=== PATIENT | male | born 1940 | race Caucasian/White ===

== ENCOUNTER → 2020-11-12 | Outpatient (CLI) | payer MEDICARE ==
[2020-11-12 13:52] LABS: Ionized Calcium 5.8 mg/dL (4.5-5.3)
[2020-11-12 20:50] LABS: Albumin 4.7 g/dL (3.80-4.90); Albumin/Globulin Ratio 2.35 (1.60-3.17); Calcium 10.4 mg/dL (8.7-10.3); Non-African American GFR(CKD) 70.8 (60.0-200.0); Potassium 4.3 mmol/L (3.5-5.5); Total Bilirubin 0.6 mg/dL (0.2-1.2); Total Protein 6.7 g/dL (6.2-8.2)
[2020-11-12 21:04] LABS: Basophils # (A) 0.05 X 10*3/uL (0.00-0.10); Basophils % (A) 0.6 %; Eosinophils # (A) 0.32 X 10*3/uL (0.04-0.35); Eosinophils % (A) 3.8 %; HCT 45.7 % (39.6-50.0); HGB 14.7 g/dL (13.0-17.0); Lymphocytes # (A) 2.05 X 10*3/uL (0.90-5.00); Lymphocytes % (A) 24.4 %; MCH 29.5 pg (27.0-32.0); MCHC 32.2 g/dL (32.0-37.0); MCV 91.8 fL (80.0-97.0); Mean Platelet Volume 11.1 fL (9.5-12.2); Monocytes % (A) 8.3 %; Neutrophils # (A) 5.27 X 10*3/uL (1.80-7.70); Neutrophils % (A) 62.7 %; Platelet Count 238 X 10*3/uL (140-440); RBC 4.98 X 10*6/uL (4.40-5.60); RDW 13.7 % (11.5-14.5); WBC 8.41 X 10*3/uL (4.50-10.00)
== END | disposition home or self-care (01) ==
LOC: LABWHC1 13:24
DX: E04.1 Nontoxic single thyroid nodule (principal)
CPT/HCPCS: 36415; 80053; 82330; 83970; 84432; 84439; 84481; 85025

== ENCOUNTER → 2021-01-31 | Outpatient (CLI) | payer MEDICARE ==
--- NOTE | 2021-02-03 06:50 | US ---
EXAMINATION TYPE: US thyroid st tissue head/neck DATE OF EXAM: 01/31/2021 COMPARISON: NONE CLINICAL HISTORY: E04.0 Thyroid Nodule. Thyroid nodule. GLAND SIZE: Right Lobe: 5.1 x 2.2 x 2.7 cm Overall Parenchyma: heterogenous Left Lobe: 4.3 x 1.4 x 1.4 cm Overall Parenchyma: heterogeneous Isthmus Thickness: 0.5 cm NODULES RIGHT: # of nodules measured on right: 2 1. 2.9 X 2.5 x 2.5 cm, lower , solid or almost completely solid, hypoechoic nodule, which is wider than tall, with ill-defined margins, without echogenic foci. Prior size: no prior 2. 1.3 X 1.2 x 1.0 cm, lower mid, solid or almost completely solid, hypoechoic nodule, which is wid er than tall, with smooth margins, without echogenic foci. Prior size: No prior LEFT: # of nodules measured on left: 3 1. 0.6 X 0.5 x 0.4 cm, upper medial, mixed cystic and solid, isoechoic nodule, which is taller than wide, with ill-defined margins, without echogenic foci. Prior size: no prior 2. 0.5 X 0.4 x 0.4 cm, upper mid, solid or almost completely solid, hypoechoic nodule, which is wi de as tall, with smooth margins, without echogenic foci. Prior size: no prior 3. 0.4 X 0.3 cm, lower Calcification Prior size: no prior ISTHMUS: # of nodules measured in the isthmus: 0 Bilateral neck scanned, no evidence of lymphadenopathy. Heterogeneous normal-sized thyroid with scattered bilateral nodules. IMPRESSION: Dominant 2.9 cm right-sided nodule is moderately suspicious, FNA is advised. 2017 ACR TI-RADS LEVEL: TR-RADS 4 - Moderately Suspicious: Follow if > 1 cm, FNA if > 1.5 cm *Highest TI-RADS level nodule reported
== END | disposition home or self-care (01) ==
LOC: RADUSWWP 10:19
PROVIDERS: ATTEND Psychiatry & Neurology Neurology
DX: E04.1 Nontoxic single thyroid nodule (principal)
CPT/HCPCS: 76536

== ENCOUNTER → 2021-02-10 | Outpatient (CLI) | payer MEDICARE ==
[2021-02-10 11:37] LABS: Ionized Calcium 6.2 mg/dL (4.5-5.3)
[2021-02-10 19:23] LABS: Calcium 10.2 mg/dL (8.7-10.3)
[2021-02-10 19:43] LABS: T4, Free (Free Thyroxine) 0.8 ng/dL (0.80-1.80)
== END | disposition home or self-care (01) ==
LOC: LABWHC1 09:46
PROVIDERS: ATTEND Surgery
DX: E04.1 Nontoxic single thyroid nodule (principal)
CPT/HCPCS: 36415; 82310; 82330; 83970; 84439; 84481

== ENCOUNTER → 2021-02-18 | Outpatient (CLI) | payer MEDICARE | END | disposition home or self-care (01) | LOC: LABWHC1 15:13 | PROVIDERS: ATTEND Family Medicine | DX: Z01.818 Encounter for other preprocedural examination (principal); I45.10 Unspecified right bundle-branch block; I21.09 ST elevation (STEMI) myocardial infarction involving other coronary artery of anterior wall; R94.31 Abnormal electrocardiogram [ECG] [EKG] | CPT/HCPCS: 36415; 93005 ==

== ENCOUNTER → 2021-02-22 | Outpatient (CLI) | payer MEDICARE ==
[2021-02-22 16:01] LABS: Basophils # (A) 0.06 X 10*3/uL (0.00-0.10); Basophils % (A) 0.7 %; Eosinophils # (A) 0.27 X 10*3/uL (0.04-0.35); Eosinophils % (A) 2.9 %; HCT 44.1 % (39.6-50.0); HGB 14.4 g/dL (13.0-17.0); Lymphocytes # (A) 1.57 X 10*3/uL (0.90-5.00); Lymphocytes % (A) 17.1 %; MCH 29.7 pg (27.0-32.0); MCHC 32.7 g/dL (32.0-37.0); MCV 90.9 fL (80.0-97.0); Mean Platelet Volume 11.2 fL (9.5-12.2); Monocytes # (A) 0.88 X 10*3/uL (0.20-1.00); Monocytes % (A) 9.6 %; Neutrophils # (A) 6.39 X 10*3/uL (1.80-7.70); Neutrophils % (A) 69.4 %; Platelet Count 253 X 10*3/uL (140-440); RBC 4.85 X 10*6/uL (4.40-5.60); RDW 13.8 % (11.5-14.5)
[2021-02-22 18:21] LABS: Hemoglobin A1C 6.7 % (4.0-6.0)
[2021-02-22 20:41] LABS: Anion Gap 11.5 mmol/L (4.00-12.00); BUN/Creat Ratio 17.27 Ratio (12.00-20.00); Carbon Dioxide 22.5 mmol/L (21.6-31.8); Magnesium 1.8 mg/dL (1.5-2.4); Potassium 4.7 mmol/L (3.5-5.5)
[2021-02-22 20:42] LABS: African American GFR (CKD) 73.1 (60.0-200.0); Albumin 4.7 g/dL (3.80-4.90); Albumin/Globulin Ratio 1.88 (1.60-3.17); Bilirubin, Conjugated 0.3 mg/dL (0.20-0.40); Bilirubin,Unconjugated 0.5 mg/dL; Calcium 10.7 mg/dL (8.7-10.3); Chol/HDL Ratio 2.69; Globulin 2.5 g/dL (1.6-3.3); LDL Cholesterol,Calculated 54.2 mg/dL (0.0-131.0); Non-African American GFR(CKD) 63.1 (60.0-200.0); Total Bilirubin 0.8 mg/dL (0.3-1.2); Total Protein 7.2 g/dL (6.2-8.2); VLDL Calculation 16.8 mg/dL (5.00-40.00)
== END | disposition home or self-care (01) ==
LOC: LABWHC1 09:21
PROVIDERS: ATTEND Family Medicine
DX: E78.5 Hyperlipidemia, unspecified (principal); E55.9 Vitamin D deficiency, unspecified; E61.2 Magnesium deficiency; R73.09 Other abnormal glucose; R94.6 Abnormal results of thyroid function studies; R79.89 Other specified abnormal findings of blood chemistry; R68.89 Other general symptoms and signs; Z79.899 Other long term (current) drug therapy
CPT/HCPCS: 36415; 80048; 80061; 80076; 82306; 83036; 83735; 84439; 84443; 85025

== ENCOUNTER → 2021-03-08 | Outpatient (CLI) | payer MEDICARE ==
--- NOTE | 2021-03-08 09:59 | XR ---
EXAMINATION TYPE: XR chest 2V DATE OF EXAM: 03/08/2021 COMPARISON: None INDICATION: Presurgical evaluation, history of prior thoracic surgery TECHNIQUE: Frontal and lateral views of the chest are obtained. FINDINGS: The heart size is normal. The pulmonary vasculature is normal. The lungs are clear. 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 IMPRESSION: 1. No acute pulmonary process.
== END | disposition home or self-care (01) ==
LOC: LABWHC1 08:21
PROVIDERS: ATTEND Surgery
DX: Z01.812 Encounter for preprocedural laboratory examination (principal); Z20.822 Contact with and (suspected) exposure to COVID-19; E11.9 Type 2 diabetes mellitus without complications; I63.9 Cerebral infarction, unspecified; E04.2 Nontoxic multinodular goiter; I25.10 Atherosclerotic heart disease of native coronary artery without angina pectoris
CPT/HCPCS: 71046; U0003; C9803; U0005

== ENCOUNTER → 2021-03-24 | Outpatient (CLI) | payer MEDICARE ==
[2021-03-24 10:37] LABS: Ionized Calcium 4.8 mg/dL (4.5-5.3)
== END | disposition home or self-care (01) ==
LOC: LABWHC1 09:45
PROVIDERS: ATTEND Physician Assistant Medical
DX: E04.2 Nontoxic multinodular goiter (principal)
CPT/HCPCS: 36415; 82310; 82330; 83970

== ENCOUNTER 2021-04-05 18:49 | Inpatient (IN) | payer MEDICARE ==
--- NOTE | 2021-04-05 19:04 | ED ---
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 Per paramedics the patient's states his speech is normal he denies any headache fevers chills nausea vomiting sweats he was able ably to the EMS stretcher by himself. He denies any palpitations or other symptoms. The exact last well- known time is unknown - Related Data Home Medications: Home Medications Medication Instructions Recorded Confirmed Aspirin EC [Ecotrin] 325 mg PO DAILY 04/05/21 04/05/21 Atorvastatin Calcium [Lipitor] 40 mg PO HS 04/05/21 04/05/21 Levothyroxine Sodium [Euthyrox] 150 mcg PO DAILY 04/05/21 04/05/21 Losartan Potassium [Cozaar] 50 mg PO BID 04/05/21 04/05/21 amLODIPine [Norvasc] 2.5 mg PO DAILY 04/05/21 04/05/21 levETIRAcetam [Keppra] 500 mg PO BID 04/05/21 04/05/21 metFORMIN HCL 1,000 mg PO BID 04/05/21 04/05/21 Allergies/Adverse Reactions: Allergies Allergy/AdvReac Type Severity Reaction Status Date / Time Sulfa (Sulfonamide Allergy Rash/Hives Verified 04/05/21 20:13 Antibiotics) Review of Systems ROS Statement: Those systems with pertinent positive or pertinent negative responses have been documented in the HPI. ROS Other: All systems not noted in ROS Statement are negative. General Exam - General Exam Comments Initial Comments: This is a well-developed asthenic appearing male who is awake alert oriented 3 General appearance: alert, in no apparent distress Head exam: Present: atraumatic, normocephalic, normal inspection Eye exam: Present: normal appearance, PERRL, EOMI. Absent: scleral icterus, conjunctival injection, periorbital swelling ENT exam: Present: normal exam, mucous membranes moist Neck exam: Present: normal inspection, full ROM, other (No stridor JVD or bruits). Absent: tenderness, meningismus, lymphadenopathy Respiratory exam: Present: normal lung sounds bilaterally. Absent: respiratory distress, wheezes, rales, rhonchi, stridor Cardiovascular Exam: Present: regular rate, normal rhythm, normal heart sounds. Absent: systolic murmur, diastolic murmur, rubs, gallop, clicks GI/Abdominal exam: Present: soft, normal bowel sounds. Absent: distended, tenderness, guarding, rebound, rigid Extremities exam: Present: normal inspection, normal capillary refill, other (Decreased protective signal installer helper strength the right hand the patient is predominantly right- handed). Absent: full ROM, tenderness, pedal edema, joint swelling, calf tenderness Back exam: Present: normal inspection Neurological exam: Present: alert, oriented X3, motor sensory deficit Psychiatric exam: Present: normal affect, normal mood Skin exam: Present: warm, dry, intact, normal color. Absent: rash Stroke MDM - Lab Data Result diagrams: 04/05/21 18:52 04/05/21 18:52 Lab Results 04/05/21 04/05/21 04/05/21 Range/Units 18:52 18:52 18:52 WBC 10.0 (3.8-10.6) k/uL RBC 4.48 (4.30-5.90) m/uL Hgb 13.7 (13.0-17.5) gm/dL Hct 39.8 (39.0-53.0) % MCV 88.9 (80.0-100.0) fL MCH 30.7 (25.0-35.0) pg MCHC 34.5 (31.0-37.0) g/dL RDW 13.2 (11.5-15.5) % Plt Count 240 (150-450) k/uL MPV 7.3 Neutrophils % 82 % Lymphocytes % 10 % Monocytes % 5 % Eosinophils % 2 % Basophils % 1 % Neutrophils # 8.1 H (1.3-7.7) k/uL Lymphocytes # 1.0 (1.0-4.8) k/uL Monocytes # 0.5 (0-1.0) k/uL Eosinophils # 0.2 (0-0.7) k/uL Basophils # 0.1 (0-0.2) k/uL PT 12.8 H (9.0-12.0) sec INR 1.2 H (<1.2) APTT 21.8 L (22.0-30.0) sec Sodium 139 (137-145) mmol/L Potassium 4.8 (3.5-5.1) mmol/L Chloride 102 (98-107) mmol/L Carbon Dioxide 27 (22-30) mmol/L Anion Gap 10 mmol/L BUN 23 H (9-20) mg/dL Creatinine 1.18 (0.66-1.25) mg/dL Est GFR (CKD-EPI)AfAm 67 (>60 ml/min/1.73 sqM) Est GFR (CKD-EPI)NonAf 58 (>60 ml/min/1.73 sqM) Glucose 180 H (74-99) mg/dL POC Glucose (mg/dL) (75-99) mg/dL POC Glu Spot Washer ID Calcium 9.4 (8.4-10.2) mg/dL Total Bilirubin 0.4 (0.2-1.3) mg/dL AST 44 (17-59) U/L ALT 57 H (4-49) U/L Alkaline Phosphatase 95 (38-126) U/L Creatine Kinase 55 (55-170) U/L Troponin I (0.000-0.034) ng/mL Total Protein 6.8 (6.3-8.2) g/dL Albumin 4.1 (3.5-5.0) g/dL 04/05/21 04/05/21 Range/Units 18:52 19:12 WBC (3.8-10.6) k/uL RBC (4.30-5.90) m/uL Hgb (13.0-17.5) gm/dL Hct (39.0-53.0) % MCV (80.0-100.0) fL MCH (25.0-35.0) pg MCHC (31.0-37.0) g/dL RDW (11.5-15.5) % Plt Count (150-450) k/uL MPV Neutrophils % % Lymphocytes % % Monocytes % % Eosinophils % % Basophils % % Neutrophils # (1.3-7.7) k/uL Lymphocytes # (1.0-4.8) k/uL Monocytes # (0-1.0) k/uL Eosinophils # (0-0.7) k/uL Basophils # (0-0.2) k/uL PT (9.0-12.0) sec INR (<1.2) APTT (22.0-30.0) sec Sodium (137-145) mmol/L Potassium (3.5-5.1) mmol/L Chloride (98-107) mmol/L Carbon Dioxide (22-30) mmol/L Anion Gap mmol/L BUN (9-20) mg/dL Creatinine (0.66-1.25) mg/dL Est GFR (CKD-EPI)AfAm (>60 ml/min/1.73 sqM) Est GFR (CKD-EPI)NonAf (>60 ml/min/1.73 sqM) Glucose (74-99) mg/dL POC Glucose (mg/dL) 143 H (75-99) mg/dL POC Glu Spot Washer ID Ramana Marlow Calcium (8.4-10.2) mg/dL Total Bilirubin (0.2-1.3) mg/dL AST (17-59) U/L ALT (4-49) U/L Alkaline Phosphatase (38-126) U/L Creatine Kinase (55-170) U/L Troponin I <0.012 (0.000-0.034) ng/mL Total Protein (6.3-8.2) g/dL Albumin (3.5-5.0) g/dL - NIH Stroke Scale 1a. Level of Consciousness: (0) alert 1b. LOC Questions: (0) answers correctly 1c. LOC Commands: (0) performs tasks correctly 2. Best Gaze: (0) normal 3. Visual: (0) no visual loss 4. Facial Palsy: (1) minor paralysis 5a. Motor Arm Left: (0) no drift 5b. Motor Arm Right: (0) no drift 6a. Motor Leg Left: (0) no drift 6b. Motor Leg Right: (1) drift 7. Limb Ataxia: (0) absent 8. Sensory: (0) normal 9. Best Language: (0) no aphasia 10. Dysarthria: (1) mild/moderate dysarthria 11. Extinction/Inattention: (0) no abnormality - EKG Data -: EKG Interpreted by Me EKG shows normal: sinus rhythm (Sinus rhythm a 66. We'll 176 QRS duration 126 QT since QTC 420/448 possible left atrial enlargement nonspecific interventricular block nonspecific T-wave configuration) Course Vital Signs 04/05/21 18:59 Temperature 97.6 F Pulse Rate 66 Respiratory 16 Rate Blood Pressure 166/69 O2 Sat by Pulse 99 Oximetry - Reevaluation(s) Reevaluation #1: 04/05/21 19:59 Reevaluation patient reveals that he is got improvement with respect to his facial movement and his right hand protective signal installer helper strength. I did discuss the case with Dr. Powell of a stroke or patient is not an interventional candidate at this time. Conservative treatment will be performed. I did discuss this with the patient and his family members were present. Reevaluation #2: 04/05/21 20:35 Patient was previously treated at [facility] in [facility] Critical Care Time Critical Care Time: Yes Total Critical Care Time: 37 Critical Care Time: Total care time includes initial presentation with history physical labs x-rays discussed with paramedics on arrival multiple reevaluation the patient discussion with family members discuss with the patient discussed with the admitting physician admission orders and documentation of the above Disposition Clinical Impression: Cerebrovascular accident (CVA), Transient cerebral ischemia Disposition: ADMITTED IP TO THIS HOSP Condition: Fair Referrals: Anthony Smith MD [Primary Care Provider] - 1-2 days
[2021-04-05 19:14] LABS: Glucose,Whole Blood 143 mg/dL (75-99)
--- NOTE | 2021-04-05 19:27 | CT ---
EXAMINATION TYPE: CT brain wo con for TPA DATE OF EXAM: 04/05/2021 COMPARISON: None HISTORY: Neuro deficits. CT DLP: 1102.8 mGycm Automated exposure control for dose reduction was used. Images obtained of the brain without contrast. There is cerebral cortical atrophy. There is no mass effect nor midline shift. There is no sign of in tracranial hemorrhage. Skull base is intact. There is normal aeration of the mastoid sinuses. IMPRESSION: Cerebral atrophy. No acute intracranial abnormality.
[2021-04-05 19:29] LABS: Basophils # (A) 0.1 k/uL (0-0.2); Basophils % (A) 1 %; Eosinophils # (A) 0.2 k/uL (0-0.7); Eosinophils % (A) 2 %; HCT 39.8 % (39.0-53.0); HGB 13.7 gm/dL (13.0-17.5); Lymphocytes % (A) 10 %; MCH 30.7 pg (25.0-35.0); MCHC 34.5 g/dL (31.0-37.0); MCV 88.9 fL (80.0-100.0); Mean Platelet Volume 7.3; Monocytes # (A) 0.5 k/uL (0-1.0); Monocytes % (A) 5 %; Neutrophils # (A) 8.1 k/uL (1.3-7.7); Neutrophils % (A) 82 %; Platelet Count 240 k/uL (150-450); RBC 4.48 m/uL (4.30-5.90); RDW 13.2 % (11.5-15.5)
--- NOTE | 2021-04-05 19:34 | XR ---
EXAMINATION TYPE: XR chest 2V DATE OF EXAM: 04/05/2021 COMPARISON: 03/08/2021 HISTORY: Altered mental status TECHNIQUE: 3 views FINDINGS: Heart and mediastinum are within normal limits. Lungs are clear of consolidation. There is sternal wires. There are chest leads. There are no hilar masses. There is no evidence of pleural effu eun. IMPRESSION: No active cardiopulmonary disease. No change.
--- NOTE | 2021-04-05 19:49 | CT ---
EXAMINATION TYPE: CT angio head neck DATE OF EXAM: 04/05/2021 COMPARISON: None HISTORY: Neuro deficits. CT DLP: 509 mGycm Automated exposure control for dose reduction was used. CONTRAST: Performed with IV Contrast, patient injected with 65ml mL of Isovue 370. Images obtained from the aortic arch to the vertex of the brain with IV contrast and 3-D post process ed images. There is normal branching pattern of the great vessels on the aortic arch. 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 There is no dissection. There is arterial flow in both subclavian arteries. There is arterial flow in the common internal and external carotid arteries bilaterally. There is mi ld plaque formation at the origin of the left internal carotid artery. There is estimated more than 5 0% stenosis at the origin left internal carotid artery. There is no evidence of any significant steno sis at the right carotid artery bifurcation. There is arterial flow in both vertebral arteries. There is arterial flow in the vertebrobasilar artery system. Left vertebral artery is larger than the righ t. There is no evidence of carotid or vertebral artery aneurysm or dissection. There is arterial flow in the anterior middle and posterior cerebral arteries. There is no mass effec t. I see no intracranial aneurysm or neovascularity. I see no evidence of intracranial arterial steno sis. There is diminutive A1 segment of the left anterior cerebral artery which shows fusiform small d iameter. The left anterior cerebral artery appears to fill mostly through the anterior communicating artery. There is normal enhancement of the venous sinuses. 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 No evidence of stenosis on the right side. There is significant narrowing of the A1 segment left anterior cerebral artery. This could be develop mental a small or related to stenosis.
[2021-04-05 19:50] LABS: INR 1.2 (<1.2); Prothrombin Time 12.8 sec (9.0-12.0)
[2021-04-05 19:54] LABS: Albumin 4.1 g/dL (3.5-5.0); Calcium 9.4 mg/dL (8.4-10.2); Potassium 4.8 mmol/L (3.5-5.1); Total Bilirubin 0.4 mg/dL (0.2-1.3); Total Protein 6.8 g/dL (6.3-8.2)
[2021-04-05 20:04] LABS: Partial Thromboplastin Time 21.8 sec (22.0-30.0)
[2021-04-05] MEDS ORDERED: metFORMIN 500 MG TAB PO SCH (21:00)
[2021-04-05] MEDS: LOSARTAN 50 MG TAB PO SCH (21:54)
[2021-04-05] MEDS: levETIRAcetam 500 MG TAB PO SCH (21:54)
[2021-04-05] MEDS: ATORVASTATIN 40 MG TAB PO SCH (21:54)
[2021-04-05] MEDS: DOCUSATE ORAL SOLN 100 MG/10 ML CUP PO SCH (22:47)
[2021-04-05] MEDS: SODIUM CHLORIDE 0.9% 1,000 ML IV SCH (22:48)
--- NOTE | 2021-04-06 02:30 | P.HPIM ---
History of Present Illness H&P Date: 04/05/21 Chief Complaint: Right-sided weakness 80-year-old male with history of stroke, diabetes mellitus, CABG 20 years ago Patient comes in with EMS for right-sided weakness. He reports that he was at baseline status of health he didn't feel well today constipated went to the [facility] hroom while his was at dinner and that he couldn't get up he felt weak on the right side. His notified EMS and brought him to the hospital for evaluation at time of evaluation his symptoms has resolved he was having some word finding difficulties however the reported that this is at his baseline from his recent stroke back in August 2020. However they were this time concerned regarding some right facial droop and right upper extremity weakness that has almost completely resolved at time of evaluation in the ED code stroke was called and neuro intervention recommended maximal medical management Patient during my interview with him was having some word finding difficulties h owever this is at his baseline otherwise he reports complete resolution of the right-sided weakness. He currently denies any headache trouble vision chest pain trouble breathing shortness of breath fever chills nausea vomiting abdominal pain or any GI bleeding. He denies any recent travel or hospitalization denies any changes in his medications Review of Systems Pertinent positives as noted in HPI. All other systems were reviewed and are negative Past Medical History Past Medical History: CVA/TIA, Diabetes Mellitus, Myocardial Infarction (NE) Additional Past Medical History / Comment(s): Stoke in August 2020, NE 20 years ago, type 2 DM Last Myocardial Infarction Date:: 20 years ago History of Any Multi-Drug Resistant Organisms: None Reported Past Surgical History: Cholecystectomy, Coronary Bypass/CABG, Tonsillectomy Additional Past Surgical History / Comment(s): thyroidectomy, Past Anesthesia/Blood Transfusion Reactions: No Reported Reaction Past Psychological History: No Psychological Hx Reported Smoking Status: Former smoker Past Alcohol Use History: None Reported Past Drug Use History: None Reported - Past Family History Sister(s) Family Medical History: Dementia Father Additional Family Medical History / Comment(s): parkinsons Medications and Allergies Home Medications Medication Instructions Recorded Confirmed Type Aspirin EC [Ecotrin] 325 mg PO DAILY 04/05/21 04/05/21 History Atorvastatin Calcium [Lipitor] 40 mg PO HS 04/05/21 04/05/21 History Levothyroxine Sodium [Euthyrox] 150 mcg PO DAILY 04/05/21 04/05/21 History Losartan Potassium [Cozaar] 50 mg PO BID 04/05/21 04/05/21 History amLODIPine [Norvasc] 2.5 mg PO DAILY 04/05/21 04/05/21 History levETIRAcetam [Keppra] 500 mg PO BID 04/05/21 04/05/21 History metFORMIN HCL 1,000 mg PO BID 04/05/21 04/05/21 History Allergies Allergy/AdvReac Type Severity Reaction Status Date / Time Sulfa (Sulfonamide Allergy Rash/Hives Verified 04/05/21 20:13 Antibiotics) Physical Exam Vitals: Vital Signs Temp Pulse Pulse Resp BP BP Pulse Ox 04/06/21 00:00 97.8 F 87 18 147/54 94 L 04/05/21 21:08 76 16 162/70 96 04/05/21 18:59 97.6 F 66 16 166/69 99 Intake and Output 04/05/21 04/05/21 04/06/21 14:59 22:59 06:59 Intake Total 30 Balance 30 Intake: Oral 30 Other: Voiding Method Toilet Urinal # Voids 1 # Bowel Movements 2 1 Weight 80.286 kg Constitutional: No acute distress, conversant, pleasant, somewhat finding difficulties and pressured speech which is at his baseline since stroke back in August 2020 Eyes: Anicteric sclerae, moist conjunctiva, Pupils equal round reactive to light ENMT: NC/AT Oropharynx clear, no erythema, or exudates Neck: Supple, FROM, no masses, or JVD No carotid bruits No thyromegaly Lungs: Clear to auscultation Clear to percussion Normal respiratory effort, no accessory muscle use Cardiovascular: Heart regular in rate and rhythm, No murmurs, gallops, or rubs No peripheral edema Abdominal: Soft Nontender, no guarding, rebound or rigidity Abdomen moving with respiration Normoactive bowel sounds No hepatomegaly, No splenomegaly No palpable mass No abdominal wall hernia noted Skin: Normal temperature, tone, texture, turgor No induration No subcutaneous nodules No rash, lesions No ulcers Extremities: No digital cyanosis No clubbing Pedal pulses intact and symmetrical Radial pulses intact and symmetrical No calf tenderness Psychiatric: Alert and oriented to person, place and time Appropriate affect fair judgement Neuro Muscles Strength 5/5 in all 4 extremities Sensation to light touch grossly present throughout Cranial nerves II-XII grossly intact No focal sensory deficits Finger-nose exam heel fonseca both unremarkable Lymphatics: no palpable cervical or supraclavicular , or inguinal lymph nodes Results CBC & Chem 7: 04/05/21 18:52 04/05/21 18:52 Labs: Abnormal Lab Results - Last 24 Hours (Table) 04/05/21 04/05/21 04/05/21 Range/Units 18:52 18:52 18:52 Neutrophils # 8.1 H (1.3-7.7) k/uL PT 12.8 H (9.0-12.0) sec INR 1.2 H (<1.2) APTT 21.8 L (22.0-30.0) sec BUN 23 H (9-20) mg/dL Glucose 180 H (74-99) mg/dL POC Glucose (mg/dL) (75-99) mg/dL ALT 57 H (4-49) U/L 04/05/21 Range/Units 19:12 Neutrophils # (1.3-7.7) k/uL PT (9.0-12.0) sec INR (<1.2) APTT (22.0-30.0) sec BUN (9-20) mg/dL Glucose (74-99) mg/dL POC Glucose (mg/dL) 143 H (75-99) mg/dL ALT (4-49) U/L Thrombosis Risk Factor Assmnt - Choose All That Apply Each Risk Factor Represents 3 Points: Age 75 years or older Each Risk Factor Represents 5 Points: Stroke (< 1 month) Thrombosis Risk Factor Assessment Total Risk Factor Score: 8 Thrombosis Risk Factor Assessment Level: High Risk Assessment and Plan Assessment: TIA with symptoms completely resolved Code stroke workup done in the ED Neuro consultation Continue with aspirin and statin Monitor blood pressure Neuro checks Fall precautions PT eval Check echocardiogram Check lipid profile Chronic conditions Diabetes mellitus insulin sliding scale hold oral hypoglycemic agents History of seizures resume Keppra History of CAD continue with aspirin and statin Hypertension continue with losartan Patient is full code Mechanical DVT prophylaxis Anticipated length of stay less than 2 midnights Anticipated discharge to home
[2021-04-06 06:28] LABS: Glucose,Whole Blood 134 mg/dL (75-99)
[2021-04-06] MEDS: LEVOTHYROXINE 75 MCG TAB PO SCH (06:31)
[2021-04-06] MEDS: SODIUM CHLORIDE 0.9% 1,000 ML IV SCH (06:31)
[2021-04-06] MEDS: INSULIN ASPART (NovoLOG) 100 UNIT/ML VIAL SQ SCH ×4 (06:33→20:26)
[2021-04-06] MEDS: levETIRAcetam 500 MG TAB PO SCH ×2 (08:02→20:25)
[2021-04-06] MEDS: amLODIPine 2.5 MG TAB PO SCH (08:04)
[2021-04-06] MEDS: LOSARTAN 50 MG TAB PO SCH ×2 (08:04→20:25)
[2021-04-06] MEDS: DOCUSATE ORAL SOLN 100 MG/10 ML CUP PO SCH ×2 (08:07→20:03)
[2021-04-06 08:41] LABS: African American GFR (CKD) >90 (>60 ml/min/1.73 sqM); Anion Gap 9 mmol/L; Blood Urea Nitrogen 18 mg/dL (9-20); Calcium 9.3 mg/dL (8.4-10.2); Carbon Dioxide 22 mmol/L (22-30); Chloride 108 mmol/L (98-107); Glucose 112 mg/dL (74-99); Magnesium 1.6 mg/dL (1.6-2.3); Non-African American GFR(CKD) 83 (>60 ml/min/1.73 sqM); Potassium 4.6 mmol/L (3.5-5.1); Sodium 139 mmol/L (137-145)
--- NOTE | 2021-04-06 11:27 | P.CNNES ---
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 Patient was not great historian. He stated that he was at baseline but felt constipated so he went to the bathroom around 6:30pm yesterday and was there for 1 10/02 and felt unwell so he called his . His daughter came to his house according to the patient and they noticed he had right-sided weakness and some mild word finding difficulti es. As a result the family contacted EMS. Prior to 6:30 PM yesterday he was at baseline according to the patient. According to the patient he has residual language deficits from his previous stroke in 2019. He feels he is back to baseline currently. He also has right lower facial droop according to the patient and that's old. Upon asking him if he follows up with a neurologist or not he stated that he is unsure. Per the ED note it is states that that the patient the stated that his language was normal upon to this incident. Upon asking him if he had any seizures or not she stated that he did not but does not know why he is on Keppra. Patient denies of tobacco use. Patient on medication consist of aspirin 325 mg daily, Lipitor 40 mg daily at bedtime, Keppra 500 mg 1 tablet twice a day, metformin, amlodipine, losartan, Synthroid. Some other workup in the hospital consisted of: Initial vital signs: Blood pressure 166/69, heart rate of 66, respiratory of 16, temperature of 97.6 Fahrenheit oral, pulse ox of 99% room air. CT of the head is reported as cerebral atrophy. No acute intracranial abnormality. CT angiography was reported as there is probable more than 50% stenosis of the origin of the left internal carotid artery due to plaque formation. There is significant narrowing of the A1 segment left anterior cerebral artery. This could be developmental a small or related to stenosis. EKG is reported as normal sinus rhythm. Possible left atrial enlargement. Nonspecific intraventricular block. T wave abnormality, consider inferior ischemia. T wave abnormality, consider anterolateral ischemia. Abnormal EKG. CBC with differential seems unremarkable Chemistry panel the initial serum glucose was 180 which is located. ALT is 57 which is slightly elevated that. Otherwise rest of the chemistry panel is within normal limits. The creatinine, Mrs. 55 which is within normal limits. Stroke code was activated. Per the ED the NIH was 3 the points were 1 for faci al 14 right leg and 1 for dysarthria. This seems in the ED the patient the facial and right hand fabricator foam rubber and improved. Per ED notes, Dr. Jean (stroke attneiding) and no IV TPA (unknow exact last normal and it seem low NIH that I assume) or intervention at this time. Review of Systems Review of system: The 12 point system was reviewed and apparent positive and negative per HPI. Past Medical History Past Medical History: CVA/TIA, Diabetes Mellitus, Myocardial Infarction ([place]) Additional Past Medical History / Comment(s): Stoke in August 2020, IA 20 years ago, type 2 DM Last Myocardial Infarction Date:: 20 years ago History of Any Multi-Drug Resistant Organisms: None Reported Past Surgical History: Cholecystectomy, Coronary Bypass/CABG, Tonsillectomy Additional Past Surgical History / Comment(s): thyroidectomy, Past Anesthesia/Blood Transfusion Reactions: No Reported Reaction Past Psychological History: No Psychological Hx Reported Smoking Status: Former smoker Past Alcohol Use History: None Reported Past Drug Use History: None Reported - Past Family History Sister(s) Family Medical History: Dementia Father Additional Family Medical History / Comment(s): parkinsons Medications and Allergies Home Medications Medication Instructions Recorded Confirmed Type Aspirin EC [Ecotrin] 325 mg PO DAILY 04/05/21 04/05/21 History Atorvastatin Calcium [Lipitor] 40 mg PO HS 04/05/21 04/05/21 History Levothyroxine Sodium [Euthyrox] 150 mcg PO DAILY 04/05/21 04/05/21 History Losartan Potassium [Cozaar] 50 mg PO BID 04/05/21 04/05/21 History amLODIPine [Norvasc] 2.5 mg PO DAILY 04/05/21 04/05/21 History levETIRAcetam [Keppra] 500 mg PO BID 04/05/21 04/05/21 History metFORMIN HCL 1,000 mg PO BID 04/05/21 04/05/21 History Allergies Allergy/AdvReac Type Severity Reaction Status Date / Time Sulfa (Sulfonamide Allergy Rash/Hives Verified 04/05/21 20:13 Antibiotics) Physical Examination - Vital Signs Vital Signs: Vital Signs Temp Pulse Pulse Resp BP BP Pulse Ox 04/06/21 08:00 98.7 F 69 18 106/56 94 L 04/06/21 03:35 98.4 F 63 16 103/64 93 L 04/06/21 00:00 97.8 F 87 18 147/54 94 L 04/05/21 21:08 76 16 162/70 96 04/05/21 18:59 97.6 F 66 16 166/69 99 Intake and Output 04/05/21 04/06/21 04/06/21 22:59 06:59 14:59 Intake Total 30 240 Balance 30 240 Intake: Oral 30 240 Other: Voiding Method Toilet Toilet Urinal Urinal # Voids 1 1 # Bowel Movements 2 1 Weight 80.286 kg 84.5 kg GENERAL: The patient is lying in bed and is not in acute distress. CHEST: The heart rate is regular rate rhythm. No murmurs to auscultation. No carotid bruit bilaterally. LUNG: Clear to auscultation bilaterally no wheezing noted throughout. Not labored breathing. ABDOMEN/GI: Bowel sounds present in all 4 quadrants. No tenderness to palpation throughout. NEUROLOGICAL: Higher mental function: The patient is awake, alert, oriented to self, place and time. Patient is following commands. Broca aphasia (speech is broken-up and not fluent). No neglect. Cranial nerves: The pupils are round, equal and reactive to light and accommodation. Visual loyd are full to confrontation throughout. Extraocular movement is intact no nystagmus is noted. Facial sensation is normal to touch throughout. The facial strength is mild to moderate lower facial droop (according to him chronic). Hearing is normal bilaterally to hand rub. Tongue is midline and moved [id number] without any difficulty. Mild dysarthria is noted. Shoulder shrug is normal bilaterally. Motor: Gait is deferred. The strength is right upper and lower extremity is 4+ to 5-. Otherwise 5/5 throughout. Normal tone and bulk. Cerebellum: Normal finger to nose and heel to fonseca bilaterally. Sensation: Sensation is normal to touch throughout. Reflexes (right/left): 2+ throughout. Plantars are mute bilaterally. Results - Laboratory Findings CBC and BMP: 04/05/21 18:52 04/06/21 07:25 Abnormal Lab Findings: Abnormal Labs 04/05/21 04/05/21 04/05/21 18:52 18:52 18:52 Neutrophils # 8.1 H PT 12.8 H INR 1.2 H APTT 21.8 L Chloride BUN 23 H Glucose 180 H POC Glucose (mg/dL) ALT 57 H 04/05/21 04/06/21 04/06/21 19:12 06:23 07:25 Neutrophils # PT INR APTT Chloride 108 H BUN Glucose 112 H POC Glucose (mg/dL) 143 H 134 H ALT Assessment and Plan Assessment: * Right sided weakness (worsening of facial droop) and patient feels back to baseline but on examination still has right facial droop and right sided weakness (not sure if baseline or not). Due to Acute ischemic stroke. 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 No acute intracranial abn ormality. 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 There is significant narrowing of the A1 segment left anterior cerebral artery. This could be developmental a small or related to stenosis. * I ordered MRI of the brain with and without. * The patient was restarted on aspirin 325mg daily. I added Plavix 75mg daily in addition. Patient to be on dual antiplatelets for 21 days and after 21 days stop aspirin and continue Plavix indefinitely. Continue and Lipitor 40mg daily at bedtime for secondary stroke prophyalsis. * 2-D echo, lipid panel are ordered and are pending. * PT, OT and [facility]'S COUNSEL are consulted. * Continue neuro checks. * Ordered HbA1c and TSH levels. * On continuous cardiac monitoring. * He was restarted on his home medication of Keppra 500 mg 1 tablet twice a day. * We'll defer the rest of the medical management to primary team * Upon discharge the patient needs to follow-up with a neurologist within 12 weeks as an outpatient. The plan is discussed with the patient's nurse at. We'll attempt to contact his family to get more information regarding the what transpired and whether the he follows up with a neurologist or not. Thank you for the consultation. Arnulfo Crain MD Neuro-Hospitalist Time with Patient: Greater than 30
[2021-04-06] MEDS: CLOPIDOGREL 75 MG TAB PO SCH (11:42)
--- NOTE | 2021-04-06 12:01 | ECHOF ---
Referral Reason:tia MEASUREMENTS -------- HEIGHT: 177.8 cm WEIGHT: 80.3 kg BP: 103/64 RVIDd: 3.4 cm (< 3.3) IVSd: 1.3 cm (0.6 - 1.1) LVIDd: 4.8 cm (3.9 - 5.3) LVPWd: 1.4 cm (0.6 - 1.1) IVSs: 1.7 cm LVIDs: 2.5 cm LVPWs: 1.9 cm LAESV Index (A-L): 51.04 ml/m Ao Diam: 2.5 cm (2.0 - 3.7) AV Cusp: 1.9 cm (1.5 - 2.6) LA Diam: 5.5 cm (2.7 - 3.8) MV EXCURSION: 17.586 mm (> 18.000) MV EF SLOPE: 65 mm/s (70 - 150) EPSS: 0.3 cm MV E Dirk: 0.74 m/s MV DecT: 248 ms MV A Dirk: 0.67 m/s MV E/A Ratio: 1.10 RAP: 15.00 mmHg RVSP: 40.83 mmHg FINDINGS -------- Sinus rhythm. This was a technically adequate study. The left ventricular size is normal. There is mild concentric left ventricular hypertrophy. Overa ll left ventricular systolic function is normal with, an EF between 55 - 60 %. Septal wall motion i s delayed and consistent with prior cardiac surgery. The right ventricle is mildly enlarged. LA is severely dilated >40 ml/m2 The right atrial size is normal. Interatrial and interventricular septum intact. The aortic valve is trileaflet and appears structurally normal. There is mild aortic valve sclerosi s. There is no evidence of aortic regurgitation. Moderate mitral regurgitation is present. Mild tricuspid regurgitation present. There is mild pulmonary hypertension. The right ventricular systolic pressure, as measured by Doppler, is 40.83mmHg. Trace/mild (physiologic) pulmonic regurgitation. The aortic root size is normal. The inferior vena cava is mildly dilated. There is no pericardial effusion. CONCLUSIONS -------- 1. The left ventricular size is normal. 2. There is mild concentric left ventricular hypertrophy. 3. Overall left ventricular systolic function is normal with, an EF between 55 - 60 %. 4. The right ventricle is mildly enlarged. 5. LA is severely dilated >40 ml/m2 6. There is mild aortic valve sclerosis. 7. Moderate mitral regurgitation is present. 8. Mild tricuspid regurgitation present. 9. There is mild pulmonary hypertension. 10. The right ventricular systolic pressure, as measured by Doppler, is 40.83mmHg. 11. Trace/mild (physiologic) pulmonic regurgitation. 12. The inferior vena cava is mildly dilated. INSPECTOR CONVEYOR LINE: Vi Mcclain RDCS
[2021-04-06 12:10] LABS: Glucose,Whole Blood 96 mg/dL (75-99)
--- NOTE | 2021-04-06 14:16 | P.PN ---
Subjective Progress Note Date: 04/06/21 Patient was seen and evaluated by me this morning. He is feeling fairly well. He denies any weakness. He was able to ambulate to the bathroom with no difficulty. Objective - Vital Signs Vital signs: Vital Signs Temp 98.2 F 04/06/21 12:00 Pulse 58 L 04/06/21 12:00 Resp 16 04/06/21 13:49 BP 114/60 04/06/21 12:00 Pulse Ox 95 04/06/21 12:00 Intake & Output 04/05/21 04/06/21 04/06/21 18:59 06:59 18:59 Intake Total 30 240 Balance 30 240 Weight 80.286 kg 84.5 kg Intake: Oral 30 240 Other: Voiding Method Toilet Toilet Urinal Urinal # Voids 1 1 # Bowel Movements 1 - Exam General: The patient is awake and alert, in no distress Eye: there is normal conjunctiva bilaterally. Neck: The neck is supple, there is no JVD. Cardiovascular: Normal S1-S2, no S3-S4, no murmurs. Respiratory: Lungs clear to auscultation bilaterally Gastrointestinal: Abdomen is soft, nontender Musculoskeletal: There is no pedal edema. Neurological:. Speech is normal. Skin: Skin is warm and dry - Labs CBC & Chem 7: 04/05/21 18:52 04/06/21 07:25 Labs: Abnormal Lab Results - Last 24 Hours (Table) 04/05/21 04/05/21 04/05/21 Range/Units 18:52 18:52 18:52 Neutrophils # 8.1 H (1.3-7.7) k/uL PT 12.8 H (9.0-12.0) sec INR 1.2 H (<1.2) APTT 21.8 L (22.0-30.0) sec Chloride (98-107) mmol/L BUN 23 H (9-20) mg/dL Glucose 180 H (74-99) mg/dL POC Glucose (mg/dL) (75-99) mg/dL ALT 57 H (4-49) U/L 04/05/21 04/06/21 04/06/21 Range/Units 19:12 06:23 07:25 Neutrophils # (1.3-7.7) k/uL PT (9.0-12.0) sec INR (<1.2) APTT (22.0-30.0) sec Chloride 108 H (98-107) mmol/L BUN (9-20) mg/dL Glucose 112 H (74-99) mg/dL POC Glucose (mg/dL) 143 H 134 H (75-99) mg/dL ALT (4-49) U/L Assessment and Plan Assessment: This is a 80-year-old male with past medical history noted below who presented to the emergency room with right upper extremity weakness and facial droop. Kristel nunes was evaluated in the ER and admitted to the hospital for further management of his medical problems noted below. 1. Right-sided weakness with facial droop. Patient was seen and evaluated by neurology. Computed tomography scan of the head and CT angiogram of the head and neck with no acute findings. MRI of the brain ordered for further evaluation. Patient is maintained on aspirin and Plavix and plan to continue dual antiplatelet therapy for 21 days then stop aspirin and continue Plavix indefinitely as recommended by neurology. 2. Type 2 diabetes, well controlled. A1c in January was 6.7. Continue sliding scale insulin. 3. Hyperlipidemia, maintained on Lipitor 40 mg daily at home. Lipid panel within acceptable range done in January with LDL of 54 4. Chronic medical problems History of coronary artery disease, essential hypertension, history of seizure on Keppra 5. DVT prophylaxis with subcu Lovenox Today, I reviewed his medication list and lab work results. Echocardiogram showed preserved ejection fraction with no significant valvular abnormalities. No intracardiac source for stroke. We will continue current management. PT/OT/speech pathology evaluation. Anticipate discharge tomorrow.
[2021-04-06] MEDS: ENOXAPARIN 40 MG/0.4 ML SYRINGE SQ SCH (15:12)
[2021-04-06 16:50] LABS: Glucose,Whole Blood 108 mg/dL (75-99)
[2021-04-06 18:08] LABS: Hemoglobin A1C 6.5 % (4.0-6.0)
[2021-04-06 20:00] LABS: Glucose,Whole Blood 135 mg/dL (75-99)
[2021-04-06] MEDS: ATORVASTATIN 40 MG TAB PO SCH (20:25)
[2021-04-06 22:44] LABS: Chol/HDL Ratio 3.13; Cholesterol 75 mg/dL (0-200); LDL Cholesterol,Calculated 37.2 mg/dL (0.0-131.0)
[2021-04-07 06:07] LABS: Glucose,Whole Blood 109 mg/dL (75-99)
[2021-04-07] MEDS: INSULIN ASPART (NovoLOG) 100 UNIT/ML VIAL SQ SCH ×4 (06:11→19:53)
[2021-04-07] MEDS: LEVOTHYROXINE 75 MCG TAB PO SCH (06:13)
[2021-04-07] MEDS ORDERED: ASPIRIN 325 MG TAB PO SCH (09:00)
[2021-04-07] MEDS: LOSARTAN 50 MG TAB PO SCH ×2 (09:11→19:53)
[2021-04-07] MEDS: amLODIPine 2.5 MG TAB PO SCH (09:11)
[2021-04-07] MEDS: CLOPIDOGREL 75 MG TAB PO SCH (09:11)
[2021-04-07] MEDS: levETIRAcetam 500 MG TAB PO SCH ×2 (09:11→19:53)
[2021-04-07] MEDS: ENOXAPARIN 40 MG/0.4 ML SYRINGE SQ SCH (09:11)
[2021-04-07] MEDS: DOCUSATE ORAL SOLN 100 MG/10 ML CUP PO SCH ×2 (09:12→19:53)
[2021-04-07 10:45] VITALS: TEMP 97.9
[2021-04-07 11:38] LABS: T4, Free (Free Thyroxine) 2.19 ng/dL (0.78-2.19)
[2021-04-07 12:00] LABS: Glucose,Whole Blood 112 mg/dL (75-99)
--- NOTE | 2021-04-07 15:02 | P.DS ---
Providers Date of admission: 04/05/21 20:36 Expected date of discharge: 04/07/21 Attending physician: Hesham Ortega MD Consults: 04/05/21 20:37 Consult Physician Routine Consulting Provider: Arnulfo Crain Consult Reason/Comments: The CVA/TIA Do you want consulting provider notified?: Yes, Notify in am Primary care physician: Anthony Smith MD Hospital Course: This is a 80-year-old male with past medical history noted below who presented to the emergency room with right upper extremity weakness and facial droop. Patient was evaluated in the ER and admitted to the hospital for further management of his medical problems noted below. 1. Right-sided weakness with facial droop. Patient was seen and evaluated by neurology. Computed tomography scan of the head and CT angiogram of the head and neck with no acute findings. MRI of the brain ordered for further evaluation. Patient is maintained on aspirin and Plavix and plan to continue dual antiplatelet therapy for 21 days then stop aspirin and continue Plavix indefinitely as recommended by neurology. Echocardiogram showed preserved ejection fraction with no significant valvular abnormalities. No intracardiac s ource for stroke. 2. Type 2 diabetes, well controlled. A1c in January was 6.7. Continue sliding scale insulin. 3. Hyperlipidemia, maintained on Lipitor 40 mg daily at home. Lipid panel within acceptable range done in January with LDL of 54 4. Chronic medical problems History of coronary artery disease, essential hypertension, history of seizure on Keppra Patient was seen, examined, and evaluated by me on the day of discharge. Physical exam: General: The patient is awake and alert, in no distress Eye: there is normal conjunctiva bilaterally. Neck: The neck is supple, there is no JVD. Cardiovascular: Normal S1-S2, no S3-S4, no murmurs. Respiratory: Lungs clear to auscultation bilaterally Gastrointestinal: Abdomen is soft, nontender Musculoskeletal: There is no pedal edema. Neurological:. Speech is normal. Skin: Skin is warm and dry Patient Condition at Discharge: Fair Plan - Discharge Summary Discharge Rx Participant: No New Discharge Prescriptions: New Clopidogrel [Plavix] 75 mg PO DAILY #30 tab Continue amLODIPine [Norvasc] 2.5 mg PO DAILY Levothyroxine Sodium [Euthyrox] 150 mcg PO DAILY Losartan Potassium [Cozaar] 50 mg PO BID metFORMIN HCL 1,000 mg PO BID Atorvastatin Calcium [Lipitor] 40 mg PO HS levETIRAcetam [Keppra] 500 mg PO BID Aspirin EC [Ecotrin] 325 mg PO DAILY #21 tab Discharge Medication List Atorvastatin Calcium [Lipitor] 40 mg PO HS 04/05/21 [History] Levothyroxine Sodium [Euthyrox] 150 mcg PO DAILY 04/05/21 [History] Losartan Potassium [Cozaar] 50 mg PO BID 04/05/21 [History] amLODIPine [Norvasc] 2.5 mg PO DAILY 04/05/21 [History] levETIRAcetam [Keppra] 500 mg PO BID 04/05/21 [History] metFORMIN HCL 1,000 mg PO BID 04/05/21 [History] Aspirin EC [Ecotrin] 325 mg PO DAILY #21 tab 04/07/21 [Rx] Clopidogrel [Plavix] 75 mg PO DAILY #30 tab 04/07/21 [Rx] Follow up Appointment(s)/Referral(s): Anthony Smith MD [Primary Care Provider] - 1-2 days Activity/Diet/Wound Care/Special Instructions: Your daughter Jeanna will help set up with Dr. Garcia, the office needs consent from patient or family to get established with Dr. Garcia. The office takes a week to approve acceptance of any new patient and then can set him up with a nurse practitioner with in 1 week after office accepts as new patient. Dr. Garcia's office number is [phone] Discharge Disposition: HOME SELF-CARE
--- NOTE | 2021-04-07 16:18 | MR ---
EXAMINATION TYPE: MR brain wo/w con DATE OF EXAM: 04/07/2021 COMPARISON: CT brain 04/05/2021 HISTORY: Right sided weakness, evaluate for CVA/TIA. TECHNIQUE: Multiplanar, multisequence images of the brain and brainstem is performed without and with IV contras t, utilizing 8 mL intravenous Gadavist . FINDINGS: Diffusion weighted images demonstrate no evidence of a recent infarct or other diffusion ab normality. There is no extra-axial fluid collection. Periventricular, pericallosal confluent and sc attered hyperintensity and inversion recovery T2-weighted sequences is noted. The ventricular system and cisternal spaces are normal in size and appearance. The brain volume is age appropriate, there i s cortical atrophy. Abnormal signal at the inferior aspect of the left cerebellar hemisphere, along t he left frontoparietal region suggest scoliosis, possible prior cerebrovascular accidents. Midline structures demonstrate normal morphology. The craniocervical junction appears within normal limits. Post contrast images demonstrate no abnormal enhancement. The dural venous sinuses appear pa tent. The visualized sinuses are clear and the globes are intact. IMPRESSION: Chronic small vessel ischemia, age related atrophy. No subacute infarct is evident.
--- NOTE | 2021-04-07 16:38 | P.PN ---
Subjective Progress Note Date: 04/07/21 I have seen the patient at beside today and he feels back to baseline. He denies of any weakness or numbness today. Spoke with the patient's daughter (Jeanna) she said her father she noticed he had right-sided weakness and facial droop. She said [id number] he has the difficulty getting his words out as baseline from his oral old stroke. Objective - Vital Signs Vital signs: Vital Signs Temp 97.9 F 04/07/21 08:00 Pulse 59 L 04/07/21 12:00 Resp 16 04/07/21 03:28 BP 147/65 04/07/21 12:00 Pulse Ox 97 04/07/21 12:00 Intake & Output 04/06/21 04/07/21 04/07/21 18:59 06:59 18:59 Intake Total 720 540 480 Output Total 400 500 300 Balance 320 40 180 Weight 80.9 kg Intake: Oral 720 540 480 Output: Urine 400 500 300 Other: Voiding Method Toilet Toilet Urinal # Voids 1 1 - Exam GENERAL: The patient is lying in bed and is not in acute distress. NEUROLOGICAL: Higher mental function: The patient is awake, alert, oriented to self, place and time. Patient is following commands. Broca aphasia (speech is broken-up and not fluent and per patient and his daughter his baseline). No neglect. Cranial nerves: The pupils are round, equal and reactive to light and accommodation. Visual loyd are full to confrontation throughout. Extraocular movement is intact no nystagmus is noted. Facial sensation is normal to touch throughout. The facial strength is normal at baseline but with smile he has right nasolabial flattening seen (from old picture patient had couple days ago it seems about the same). Hearing is normal bilaterally to hand rub. Tongue is midline and moved [id number] without any difficulty. Mild dysarthria is noted. Shoulder shrug is normal bilaterally. Motor: Gait is deferred. The strength is 5/5 throughout. Normal tone and bulk. Cerebellum: Normal finger to nose and heel to fonseca bilaterally. Sensation: Sensation is normal to touch throughout. Reflexes (right/left): 2+ throughout. Plantars are mute bilaterally. LABS/IMAGING TSH: 0.017 (low). Free T4: 2.19 (normal). Lipid: Triglyceride 69, cholestrol 75. LDL 37 and HDL: 24.0. CT of the head is reported as cerebral atrophy. No acute intracranial abnormality. CT angiography was reported as there is probable more than 50% stenosis of the origin of the left internal carotid artery due to plaque formation. There is significant narrowing of the A1 segment left anterior cerebral artery. This could be developmental a small or related to stenosis. 2-D echogram is reported as left ventricular size is normal. Mild concentric left ventricular hypertrophy. Ejection fraction of 55-60%. Left atrium is se verely dilated that. Moderate mitral regurgitation is present. - Labs CBC & Chem 7: 04/05/21 18:52 04/06/21 07:25 Labs: Abnormal Lab Results - Last 24 Hours (Table) 04/06/21 04/06/21 04/06/21 Range/Units 07:25 07:25 16:49 POC Glucose (mg/dL) 108 H (75-99) mg/dL Hemoglobin A1c 6.5 H (4.0-6.0) % HDL Cholesterol 24.0 L (40.0-60.0) mg/dL TSH (0.465-4.680) mIU/L 04/06/21 04/07/21 04/07/21 Range/Units 19:59 06:06 09:55 POC Glucose (mg/dL) 135 H 109 H (75-99) mg/dL Hemoglobin A1c (4.0-6.0) % HDL Cholesterol (40.0-60.0) mg/dL TSH 0.017 L (0.465-4.680) mIU/L 04/07/21 Range/Units 11:58 POC Glucose (mg/dL) 112 H (75-99) mg/dL Hemoglobin A1c (4.0-6.0) % HDL Cholesterol (40.0-60.0) mg/dL TSH (0.465-4.680) mIU/L Assessment and Plan Assessment: * Transient ischemic attack (presentation of right sided weakness and facial droop). 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 No subacute infarct is evident. Upon reviewing the MRI there is no acute or subacute ischemia. In the body the report is reported as abnormal signal in the inferior aspect of the left cerebellar hemisphere along the left Ponto parietal region suggest scoliosis, possible prior cerebrovascular accidents. * Cotninue aspirin 325mg daily (home dose) and Plavix 75mg (new on this admission)daily. Patient to be on dual antiplatelets for 21 days and after 21 days stop aspirin and continue Plavix indefinitely. Continue and Lipitor 40mg daily at bedtime for secondary stroke prophyalsis. * PT, OT and SOUND SYSTEM INSTALLER are consulted. * Continue neuro checks. * On continuous cardiac monitoring. * Continue his home medication of Keppra 500 mg 1 tablet twice a day (per patient and his daughter he was started on it by his neurologist after his stroke for seizure prophylaxis). If the patient continues to have further episode of right-sided weakness or worsening of the right facial then I would recommend that to go up on the Keppra and this wasn't notified to the patient and his daughter especially with old history of stroke which can increase risk of seizures * We'll defer the rest of the medical management to primary team * Upon discharge the patient needs to follow-up with a neurologist within 1-2 w eeks as an outpatient. The plan is discussed with the patient's nurse and his daughter (Jeanna). There is no further work-up. Arnulfo Crain MD Neuro-Hospitalist Time with Patient: Less than 30
[2021-04-07 16:57] LABS: Glucose,Whole Blood 116 mg/dL (75-99)
[2021-04-07] MEDS: ATORVASTATIN 40 MG TAB PO SCH (19:53)
[2021-04-07 19:57] VITALS: BP 124/58; PULSE 60; RESP 18
== END 2021-04-07 21:30 | disposition home or self-care (01) | DRG 69 ==
LOC: EC 18:49 → 3SCARD 20:36
PROVIDERS: ADMIT Internal Medicine; ATTEND Internal Medicine
DX: G45.9 Transient cerebral ischemic attack, unspecified (principal); I69.328 Other speech and language deficits following cerebral infarction; E11.51 Type 2 diabetes mellitus with diabetic peripheral angiopathy without gangrene; Z79.84 Long term (current) use of oral hypoglycemic drugs; E78.5 Hyperlipidemia, unspecified; E89.0 Postprocedural hypothyroidism; I10 Essential (primary) hypertension; I25.10 Atherosclerotic heart disease of native coronary artery without angina pectoris; I25.2 Old myocardial infarction; I45.4 Nonspecific intraventricular block; R56.9 Unspecified convulsions; K59.00 Constipation, unspecified; R29.810 Facial weakness; Z79.82 Long term (current) use of aspirin; Z79.890 Hormone replacement therapy; Z79.899 Other long term (current) drug therapy; Z82.0 Family history of epilepsy and other diseases of the nervous system; Z87.891 Personal history of nicotine dependence; Z95.1 Presence of aortocoronary bypass graft; Z90.89 Acquired absence of other organs; Z90.49 Acquired absence of other specified parts of digestive tract; Z88.2 Allergy status to sulfonamides
CPT/HCPCS: 36415; 70450; 70496; 70498; 70553; 71046; 80048; 80053; 80061; 82550; 83036; 83735; 84439; 84443; 84484; 85025; 85610; 85730; 93005; 93306; 94760; 99291

== ENCOUNTER 2021-04-30 18:58 | Emergency (ER) | payer MEDICARE ==
[2021-04-30 19:03] VITALS: TEMP 97.8
--- NOTE | 2021-04-30 20:06 | US ---
EXAMINATION TYPE: US venous doppler duplex UE RT DATE OF EXAM: 04/30/2021 COMPARISON: NONE CLINICAL HISTORY: nodule forearm, pt concerned for clot. SIDE PERFORMED: Right Right Arm: Negative for DVT At the patient's palpable, right forearm, there is a hypoechoic area visualized measuring 0.8 x 0.4 x 0.8 cm IMPRESSION: No evidence of deep vein thrombosis in the right arm. There is solid oval-shaped 8 x 5 mm area in the area of palpable concern of uncertain significance. This could be a lymph node.
--- NOTE | 2021-04-30 20:13 | ED ---
Extremity Problem HPI - General Chief complaint: Extremity Problem,Nontraumatic Stated complaint: Swelling in Rt Arm Time Seen by Provider: 04/30/21 19:05 Source: patient, family, RN notes reviewed Mode of arrival: ambulatory Limitations: no limitations - History of Present Illness Initial comments: Patient is an 80-year-old male that presents to the emergency department with a nodule to the posterior aspect of the right forearm over the brachial radialis muscle. He notes that he is concern for a possible DVT. He notes if everything comes back negative he will get out of hour here. He denied any other issues or complaints. He denied any chest pain shortness of breath headache nausea vomiting diarrhea constipation fever fatigue chills. - Related Data Home Medications Medication Instructions Recorded Confirmed Atorvastatin Calcium [Lipitor] 40 mg PO HS 04/05/21 04/05/21 Levothyroxine Sodium [Euthyrox] 150 mcg PO DAILY 04/05/21 04/05/21 Losartan Potassium [Cozaar] 50 mg PO BID 04/05/21 04/05/21 amLODIPine [Norvasc] 2.5 mg PO DAILY 04/05/21 04/05/21 levETIRAcetam [Keppra] 500 mg PO BID 04/05/21 04/05/21 metFORMIN HCL 1,000 mg PO BID 04/05/21 04/05/21 Previous Rx's Medication Instructions Recorded Aspirin EC [Ecotrin] 325 mg PO DAILY #21 tab 04/07/21 Clopidogrel [Plavix] 75 mg PO DAILY #30 tab 04/07/21 Allergies Allergy/AdvReac Type Severity Reaction Status Date / Time Sulfa (Sulfonamide Allergy Rash/Hives Verified 04/30/21 19:02 Antibiotics) Review of Systems ROS Statement: Those systems with pertinent positive or pertinent negative responses have been documented in the HPI. ROS Other: All systems not noted in ROS Statement are negative. Past Medical History Past Medical History: CVA/TIA, Diabetes Mellitus, Myocardial Infarction ([place]) Additional Past Medical History / Comment(s): Stoke in August 2020, [place] 20 years ago, type 2 DM Last Myocardial Infarction Date:: 20 years ago History of Any Multi-Drug Resistant Organisms: None Reported Past Surgical History: Cholecystectomy, Coronary Bypass/CABG, Tonsillectomy Additional Past Surgical History / Comment(s): thyroidectomy, Past Anesthesia/Blood Transfusion Reactions: No Reported Reaction Past Psychological History: No Psychological Hx Reported Smoking Status: Former smoker Past Alcohol Use History: None Reported Past Drug Use History: None Reported - Past Family History Sister(s) Family Medical History: Dementia Father Additional Family Medical History / Comment(s): parkinsons General Exam Limitations: no limitations General appearance: alert, in no apparent distress Head exam: Present: atraumatic, normocephalic, normal inspection Eye exam: Present: normal appearance, PERRL, EOMI. Absent: scleral icterus, conjunctival injection, periorbital swelling Neck exam: Present: normal inspection Respiratory exam: Present: normal lung sounds bilaterally. Absent: respiratory distress, wheezes, rales, rhonchi, stridor Cardiovascular Exam: Present: regular rate, normal rhythm, normal heart sounds. Absent: systolic murmur, diastolic murmur, rubs, gallop, clicks Extremities exam: Present: normal inspection, full ROM, normal capillary refill, other (One soft nodule to right forearm over the brachial radialis, nontender non-fixated.). Absent: tenderness, pedal edema, joint swelling, calf tenderness Neurological exam: Present: alert, oriented X3 Psychiatric exam: Present: normal affect, normal mood Skin exam: Present: warm, dry, intact, normal color. Absent: rash Course Vital Signs 04/30/21 19:00 Temperature 97.8 F Pulse Rate 67 Respiratory 16 Rate Blood Pressure 134/74 O2 Sat by Pulse 98 Oximetry Medical Decision Making - Medical Decision Making 80-year-old male with a suspicious nodule to right forearm, his concern for a DVT. Ultrasound of the right upper extremity ordered. Ultrasound negative for any DVT. Case discussed Dr. Scott, patient can discharge home with follow-up primary care. - Radiology Data Radiology results: report reviewed, image reviewed Ultrasound of the right upper extremity: No evidence of deep vein thrombosis in the right arm. There is somewhat oval-shaped 8 x 5 mm area in the area of palpable concern of uncertain significance. This could be a lymph node. Disposition Clinical Impression: Lymphadenopathy Disposition: HOME SELF-CARE Condition: Stable Instructions (If sedation given, give patient instructions): Lymphadenopathy (ED) Additional Instructions: Please return to the Emergency Department if symptoms worsen or any other concerns. Follow-up with primary care in the next 1-2 days. Is patient prescribed a controlled substance at d/c from ED?: No Referrals: Neo Garcia MD [Primary Care Provider] - 1-2 days Time of Disposition: 20:13
[2021-04-30 20:28] VITALS: BP 130/77; PULSE 77; RESP 18
== END 2021-04-30 20:33 | disposition home or self-care (01) ==
LOC: EC 18:58
DX: R59.1 Generalized enlarged lymph nodes (principal); E11.9 Type 2 diabetes mellitus without complications; I25.2 Old myocardial infarction; Z86.73 Personal history of transient ischemic attack (TIA), and cerebral infarction without residual deficits; Z87.891 Personal history of nicotine dependence; Z79.82 Long term (current) use of aspirin; Z79.84 Long term (current) use of oral hypoglycemic drugs
CPT/HCPCS: 99284

== ENCOUNTER → 2021-06-09 | Outpatient (CLI) | payer MEDICARE ==
[2021-06-10 01:43] LABS: Albumin 4.4 g/dL (3.80-4.90); Albumin/Globulin Ratio 1.69 (1.60-3.17); Calcium 9.3 mg/dL (8.7-10.3); Chol/HDL Ratio 2.69; Globulin 2.6 g/dL (1.6-3.3); Non-African American GFR(CKD) 70.8 (60.0-200.0); Potassium 4.5 mmol/L (3.5-5.5); Total Bilirubin 0.8 mg/dL (0.2-1.2)
== END | disposition home or self-care (01) ==
LOC: LABWHC1 08:21
PROVIDERS: ATTEND Internal Medicine Interventional Cardiology
DX: E78.2 Mixed hyperlipidemia (principal)
CPT/HCPCS: 36415; 80053; 80061

== ENCOUNTER → 2022-01-17 | Outpatient (CLI) | payer MEDICARE ==
--- NOTE | 2022-01-17 19:53 | EEG ---
ELECTROENCEPHALOGRAM REPORT DATE OF SERVICE: 01/17/2022 PREAMBLE: This is an 81-year-old male who has history of a stroke about one year ago. He has speech deficits. This study is performed to evaluate for any epileptiform activity. EEG FINDINGS: This is a 21-channel digital EEG recording with video component, utilizing 10/20 international system with referential and bipolar montages. Background consists of well developed, well regulated, moderate voltage activity in 9 hertz alpha. Background is posterior-dominant and reactive to eye opening and closing. Photic driving response was seen with some flash frequencies. Drowsiness was seen with presence of bilaterally symmetric theta frequency rhythm. Deeper stages of sleep were not seen. During the course of the study, there were 5 instances of left temporal sharp waves seen. No electrographic seizure was recorded. IMPRESSION: This is an abnormal EEG due to recording of rare (5) sharp waves seen sporadically over the left temporal region. This suggests focal cortical neuronal irritability and tendency for seizures. Clinical correlation is strongly recommended. No electrographic seizures were recorded. MMSTACY / CHINON: [id number] /
== END ==
LOC: NEUROMAIN 07:52
PROVIDERS: ATTEND Internal Medicine Geriatric Medicine
DX: R56.9 Unspecified convulsions (principal); Z88.2 Allergy status to sulfonamides
CPT/HCPCS: 95816

== ENCOUNTER 2023-07-20 02:02 | Inpatient (IN) | payer MEDICARE ==
[2023-07-20 03:03] LABS: Basophils % (A) 0 %; Eosinophils # (A) 0.2 k/uL (0-0.7); Eosinophils % (A) 2 %; HCT 39.5 % (39.0-53.0); HGB 13.4 gm/dL (13.0-17.5); Lymphocytes # (A) 1.7 k/uL (1.0-4.8); Lymphocytes % (A) 22 %; MCH 30.5 pg (25.0-35.0); MCHC 33.8 g/dL (31.0-37.0); MCV 90.3 fL (80.0-100.0); Mean Platelet Volume 7.5; Monocytes # (A) 0.5 k/uL (0-1.0); Monocytes % (A) 6 %; Neutrophils # (A) 5.3 k/uL (1.3-7.7); Neutrophils % (A) 68 %; Platelet Count 237 k/uL (150-450); RBC 4.38 m/uL (4.30-5.90); RDW 13.5 % (11.5-15.5); WBC 7.8 k/uL (3.8-10.6)
[2023-07-20 03:22] LABS: ALT 44 U/L (4-49); AST 42 U/L (17-59); African American GFR (CKD) 90 (>60 ml/min/1.73 sqM); Albumin 4.3 g/dL (3.5-5.0); Alkaline Phosphatase 70 U/L (38-126); Anion Gap 14 mmol/L; Blood Urea Nitrogen 21 mg/dL (9-20); Calcium 9.5 mg/dL (8.4-10.2); Carbon Dioxide 23 mmol/L (22-30); Chloride 102 mmol/L (98-107); Glucose 164 mg/dL (74-99); Magnesium 1.7 mg/dL (1.6-2.3); Non-African American GFR(CKD) 78 (>60 ml/min/1.73 sqM); Potassium 4.5 mmol/L (3.5-5.1); Sodium 139 mmol/L (137-145); Total Bilirubin 0.6 mg/dL (0.2-1.3); Total Protein 7.3 g/dL (6.3-8.2)
[2023-07-20 03:25] LABS: INR 1.1 (<1.2); Partial Thromboplastin Time 23.3 sec (22.0-30.0); Prothrombin Time 12.3 sec (10.0-12.5)
[2023-07-20 03:30] LABS: NT-Pro-B-Type Natriuretic Pept 286 pg/mL
[2023-07-20] MEDS ORDERED: ASPIRIN 81 MG PO STA (05:17)
--- NOTE | 2023-07-20 05:18 | ED ---
Chest Pain HPI - General Chief Complaint: Chest Pain Stated Complaint: Chest Pain Dizziness Time Seen by Provider: 07/20/23 02:10 Source: patient Mode of arrival: ambulatory Limitations: no limitations - History of Present Illness Initial Comments: 83-year-old male with past medical history of coronary artery disease status post bypass in 1998 who presents to the emergency department reporting chest pain. States that he had some chest pain approximately one hour prior to hospital arrival. He was attempting to lay down in bed, playing a game on his phone. He felt acutely dizzy. Pain lasted for approximately an hour before resolved. Patient presents to the emergency department and is completely pain- free. He denies associated nausea and vomiting. No associated shortness of breath. Denies fevers, chills or cough. No numbness, tingling or weakness in his extremities. He did not take anything for his pain that alleviated it. He does have history of bypass surgery. Currently does not follow with the electronic assembly. Unsure of his last stress testing. No other alleviating, precipitating or modifying factors - Related Data Home Medications Medication Instructions Recorded Confirmed Atorvastatin Calcium [Lipitor] 40 mg PO HS 04/05/21 07/20/23 Losartan Potassium [Cozaar] 50 mg PO BID 04/05/21 07/20/23 metFORMIN HCL 1,000 mg PO BID 04/05/21 07/20/23 Acetaminophen Tab [Tylenol] 650 mg PO Q4H PRN 07/20/23 07/20/23 Ascorbic Acid [Vitamin C] 500 mg PO DAILY 07/20/23 07/20/23 Focus Factor 1 tab PO DAILY 07/20/23 07/20/23 Levothyroxine Sodium [Synthroid] 125 mcg PO DAILY 07/20/23 07/20/23 Tamsulosin HCl [Flomax] 0.4 mg PO DAILY 07/20/23 07/20/23 Turmeric Root Extract [Turmeric] 500 mg PO DAILY 07/20/23 07/20/23 Previous Rx's Medication Instructions Recorded Clopidogrel [Plavix] 75 mg PO DAILY #30 tab 04/07/21 Allergies Allergy/AdvReac Type Severity Reaction Status Date / Time Sulfa (Sulfonamide Allergy Rash/Hives Verified 07/20/23 07:26 Antibiotics) Review of Systems ROS Statement: Those systems with pertinent positive or pertinent negative responses have been documented in the HPI. ROS Other: All systems not noted in ROS Statement are negative. Past Medical History Past Medical History: CVA/TIA, Diabetes Mellitus, Myocardial Infarction ([place]) Additional Past Medical History / Comment(s): Stoke in August 2020, [place] 20 years ago, type 2 DM Last Myocardial Infarction Date:: 20 years ago History of Any Multi-Drug Resistant Organisms: None Reported Past Surgical History: Cholecystectomy, Coronary Bypass/CABG, Tonsillectomy Additional Past Surgical History / Comment(s): thyroidectomy, Past Anesthesia/Blood Transfusion Reactions: No Reported Reaction Past Psychological History: No Psychological Hx Reported Smoking Status: Former smoker Past Alcohol Use History: None Reported Past Drug Use History: None Reported - Past Family History Sister(s) Family Medical History: Dementia Father Additional Family Medical History / Comment(s): parkinsons General Exam Limitations: no limitations, language barrier (slight studdered speech due to stroke history) General appearance: alert, in no apparent distress Head exam: Present: atraumatic, normocephalic, normal inspection Eye exam: Present: normal appearance, PERRL, EOMI. Absent: scleral icterus, conjunctival injection, periorbital swelling ENT exam: Present: normal exam, mucous membranes moist Neck exam: Present: normal inspection. Absent: tenderness, meningismus, lymphadenopathy Respiratory exam: Present: normal lung sounds bilaterally. Absent: respiratory distress, wheezes, rales, rhonchi, stridor Cardiovascular Exam: Present: regular rate, normal rhythm, normal heart sounds. Absent: systolic murmur, diastolic murmur, rubs, gallop, clicks GI/Abdominal exam: Present: soft, normal bowel sounds. Absent: distended, tenderness, guarding, rebound, rigid Extremities exam: Present: normal inspection, full ROM, normal capillary refill. Absent: tenderness, pedal edema, joint swelling, calf tenderness Back exam: Present: normal inspection Neurological exam: Present: alert, oriented X3, CN II-XII intact Psychiatric exam: Present: normal affect, normal mood Skin exam: Present: warm, dry, intact, normal color. Absent: rash Course Vital Signs 07/20/23 07/20/23 07/20/23 02:06 04:08 05:00 Temperature 98.2 F Pulse Rate 87 55 L 74 Respiratory 18 16 16 Rate Blood Pressure 170/107 137/79 133/69 O2 Sat by Pulse 98 97 97 Oximetry 07/20/23 07/20/23 09:00 12:30 Temperature 97.6 F Pulse Rate 55 L 72 Respiratory 18 18 Rate Blood Pressure 156/76 146/68 O2 Sat by Pulse 95 98 Oximetry Chest Pain MDM - MDM Was pt. sent in by a medical professional or institution (, GAYATRI, IT ARCHITECTURE ANALYST, urgent care, hospital, or [facility]...) When possible be specific @ -No Did you speak to anyone other than the patient for history (EMS, parent, family, police, friend...)? What history was obtained from this source @ -Daughter Did you review nursing and triage notes (agree or disagree)? Why? @ -I reviewed and agree with nursing and triage notes Were old charts reviewed (outside hosp., previous admission, EMS record, old EKG, old radiological studies, urgent care reports/EKG's, [facility] records)? Report findings @ -No old charts were reviewed Differential Diagnosis (chest pain, altered mental status, abdominal pain women, abdominal pain men, vaginal bleeding, weakness, fever, dyspnea, syncope, headache, dizziness, GI bleed, back pain, seizure, CVA, palpatations, mental health, musculoskeletal)? @ -Differential Chest Pain: Stable Angina, Unstable Angina, STEMI, NSTEMI Aortic Dissection, Pneumothorax, Musculoskeletal, Esophageal Spasm GERD, Cholecystitis, Pancreatitis, Zoster, this is not meant to be an all-inclusive list. EKG interpreted by me (3pts min.). @ -Yes and demonstrates a right bundle-branch block. Rate of 72. KS interval 1 79. QRS 145. QTC of 461. ST depression in 2, 3, aVF. EKG does have similar morphology compared to old EKG X-rays interpreted by me (1pt min.). @ -Yes and demonstrates no acute process CT interpreted by me (1pt min.). @ -None done U/S interpreted by me (1pt. min.). @ -None done What testing was considered but not performed or refused? (CT, X-rays, U/S, labs)? Why? @ -None What meds were considered but not given or refused? Why? @ -None Did you discuss the management of the patient with other professionals (professionals i.e. , GAYATRI, IT ARCHITECTURE ANALYST, lab, RT, psych nurse, social worker palliative care, internet technology manager, teacher, chief contract officer, director of casework)? Give summary @ -Spoke with Madina from [facility] Was smoking cessation discussed for >3mins.? @ -No Was critical care preformed (if so, how long)? @ -No Were there social determinants of health that impacted care today? How? (Homelessness, low income, unemployed, alcoholism, drug addiction, transportation, low edu. Level, literacy, decrease access to med. care, fdc, rehab)? @ -No Was there de-escalation of care discussed even if they declined (Discuss DNR or withdrawal of care, Hospice)? DNR status @ -No What co-morbidities impacted this encounter? (DM, HTN, Smoking, COPD, CAD, Cancer, CVA, ARF, Chemo, Hep., AIDS, mental health diagnosis, sleep apnea, morbid obesity)? @ -CAD Was patient admitted / discharged? Hospital course, mention meds given and route, prescriptions, significant lab abnormalities, going to OR and other pertinent info. @ -Upon arrival patient was placed into room 5. History and physical exam is performed. Patient is pain-free upon arrival. IV is established. laboratory studies are conducted. 12 lead EKG was obtained which appears similar to the patient's old ekg morphology. Laboratory studies are reviewed. Troponin is negative. He is provided with aspirin. Due to his significant cardiac history or recommend admission which the patient was agreeable. He has no pain during my evaluation in the emergency department. Patient agreeable to admission. Spoke with Madina from [facility] who agreed to admission Undiagnosed new problem with uncertain prognosis? @ -Yes Drug Therapy requiring intensive monitoring for toxicity (Heparin, Nitro, Insulin, Cardizem)? @ -No Were any procedures done? @ -No Diagnosis/symptom? @ -Acute chest pain, history of atherosclerotic coronary artery disease Acute, or Chronic, or Acute on Chronic? @ -Acute Uncomplicated (without systemic symptoms) or Complicated (systemic symptoms)? @ -complicated Side effects of treatment? @ -No Exacerbation, Progression, or Severe Exacerbation? @ -No Poses a threat to life or bodily function? How? (Chest pain, [place], [place], pneumonia, PE, COPD, DKA, ARF, appy, cholecystitis, CVA, Diverticulitis, Homicidal, Suicidal, threat to staff... and all critical care pts) @ -No Disposition Clinical Impression: Chest pain Disposition: ADMITTED IP TO THIS HOSP Condition: Stable Is patient prescribed a controlled substance at d/c from ED?: No Time of Disposition: 05:26 Decision to Admit Reason: Admit from EC Decision Date: 07/20/23 Decision Time: 05:26
[2023-07-20] MEDS ORDERED: NALOXONE 0.4 MG/ML 1 ML VIAL IV PRN (05:27)
[2023-07-20] MEDS ORDERED: HEPARIN SODIUM,PORCINE (1 ML) 2,500 UNIT in SODIUM CHLORIDE 0.9% 250 ML IRRIGATION PRN (07:00)
[2023-07-20] MEDS ORDERED: HEPARIN SODIUM,PORCINE 10,000 UNIT in SODIUM CHLORIDE 0.9% 1,000 ML IRRIGATION PRN (07:00)
--- NOTE | 2023-07-20 07:27 | XR ---
EXAMINATION TYPE: XR chest 2V DATE OF EXAM: 07/20/2023 COMPARISON: 04/05/2021 HISTORY: Shortness of breath TECHNIQUE: Frontal and lateral views of the chest are obtained. FINDINGS: Scattered senescent parenchymal changes noted. Hyperinflation compatible with COPD. No evidence for infiltrate. No evidence for atelectasis. Chronic elevation right hemidiaphragm. Heart size is stable. Mediastinal structures are stable and grossly unremarkable. No evidence for hilar prominence. Degenerative changes dorsal spine. IMPRESSION: 1. No evidence for acute pulmonary disease.
[2023-07-20] MEDS ORDERED: HEPARIN SODIUM 1,000 UN/ML (10ML VL) IV PRN (08:36)
[2023-07-20] MEDS ORDERED: HEPARIN SODIUM 1,000 UN/ML (10ML VL) IV ONE (08:36)
[2023-07-20] MEDS ORDERED: NITROGLYCERIN SL TABS 0.4 MG TAB SUBLINGUAL PRN ×2 (08:42→15:02)
[2023-07-20] MEDS ORDERED: ALPRAZolam 0.5 MG TAB PO PRN (08:42)
[2023-07-20] MEDS ORDERED: ALPRAZolam 0.25 MG TAB PO PRN (08:42)
[2023-07-20] MEDS ORDERED: ASPIRIN 325 MG TAB PO STA (08:42)
[2023-07-20] MEDS ORDERED: ATORVASTATIN 80 MG TAB PO STA (08:42)
[2023-07-20] MEDS ORDERED: HEPARIN SOD,PORK IN 0.45% NACL 25,000 UNIT in 0.45% NACL 1 250ML.BAG IV SCH (09:00)
[2023-07-20] MEDS: CLOPIDOGREL 75 MG TAB PO SCH (09:23)
[2023-07-20] MEDS ORDERED: ACETAMINOPHEN TAB 325 MG TAB PO PRN (10:03)
[2023-07-20] MEDS: LOSARTAN 50 MG TAB PO SCH ×2 (11:13→11:21)
[2023-07-20] MEDS: LEVOTHYROXINE 125 MCG TAB PO SCH (11:21)
[2023-07-20] MEDS: TAMSULOSIN 0.4 MG CAP.ER.24H PO SCH (11:21)
--- NOTE | 2023-07-20 12:13 | CA ---
Transthoracic Echo Report Name: Ayden Mercado Age: 83 Gender: M : 1940 Exam Date: 07/20/2023 09:40 Exam Location: [facility] Ht (in): 71 Wt (lb): 170 Ordering Physician: Angelia Guerrero DO Attending/Referring Phys: [id number], Yolanda Petrophysical Engineer Edilia Cruz, MELISSA Procedure CPT: Indications: CP, hx CABG Cardiac Hx: Technical Quality: Good Contrast 1: Total Dose (mL): Contrast 2: Total Dose (mL): MEASUREMENTS (Male / Female) Normal Values 2D ECHO LV Diastolic Diameter PLAX 6.1 cm 4.2 - 5.9 / 3.9 - 5.3 cm LV Systolic Diameter PLAX 4.4 cm IVS Diastolic Thickness 1.0 cm 0.6 - 1.0 / 0.6 - 0.9 cm LVPW Diastolic Thickness 0.9 cm 0.6 - 1.0 / 0.6 - 0.9 cm LV Relative Wall Thickness 0.3 RV Internal Dim ED PLAX 3.6 cm LA Systolic Diameter LX 4.0 cm 3.0 - 4.0 / 2.7 - 3.8 cm LV Diastolic Volume MOD 4C 102.6 cm??? LV Systolic Volume MOD 4C 58.4 cm??? LV Ejection Fraction MOD 4C 43.1 % LV Cardiac Index MOD 4C 1325.8 cm???/min???m??? LV Diastolic Length 4C 8.4 cm LV Systolic Length 4C 7.1 cm LV Diastolic Volume MOD 2C 67.6 cm??? LV Systolic Volume MOD 2C 32.7 cm??? LV Ejection Fraction MOD 2C 51.6 % LV Cardiac Index MOD 2C 1045.0 cm???/min???m??? LV Diastolic Length 2C 7.9 cm LV Systolic Length 2C 6.7 cm LA Volume 63.5 cm??? 18 - 58 / 22 - 52 cm??? LA Volume Index 32.2 cm???/m??? 16 - 28 cm???/m??? M-MODE Aortic Root Diameter MM 3.6 cm MV E Point Septal Separation 0.3 cm AV Cusp Separation MM 1.7 cm DOPPLER AV Peak Velocity 136.1 cm/s AV Peak Gradient 7.4 mmHg MV Area PHT 2.2 cm??? Mitral E Point Velocity 65.8 cm/s Mitral A Point Velocity 74.2 cm/s Mitral E to A Ratio 0.9 MV Deceleration Time 348.4 ms MV E' Velocity 6.7 cm/s Mitral E to MV E' Ratio 9.8 TR Peak Velocity 271.2 cm/s TR Peak Gradient 29.4 mmHg Right Ventricular Systolic Press 36.0 mmHg FINDINGS Left Ventricle Left ventricular ejection fraction is estimated at 50-55 %. Mildly increased left ventricular diastolic diameter. Left ventricular wall thickness normal. Apical septum hypokinesis. Apical inferior hypokinesis Right Ventricle Mild right ventricular dilatation. Mild pulmonary hypertension. Right Atrium Normal right atrial size. Left Atrium Mildly increased left atrial volume. Mildly increased left atrial area. Mitral Valve Structurally normal mitral valve. [id number] mitral regurgitation. Aortic Valve Trileaflet aortic valve. No aortic valve stenosis or regurgitation. Tricuspid Valve Structurally normal tricuspid valve. Mild tricuspid regurgitation. Pulmonic Valve Structurally normal pulmonic valve. Mild pulmonic regurgitation. Pericardium No pericardial effusion. Aorta Normal size aortic root and proximal ascending aorta. CONCLUSIONS Reduced LV systolic function ejection fraction in the lower limits of normal of 50% Predominantly septal, severe hypokinesis extending into the apex, inferior apical hypokinesis Previewed by: Dr. Denver Monique MD (Electronically Signed) Final Date: 20 July 2023 12:11
[2023-07-20 12:15] LABS: Basophils % (A) 0 %; Eosinophils # (A) 0.2 k/uL (0-0.7); Eosinophils % (A) 2 %; HCT 38.9 % (39.0-53.0); Lymphocytes # (A) 1.8 k/uL (1.0-4.8); Lymphocytes % (A) 24 %; MCH 30.4 pg (25.0-35.0); MCHC 33.5 g/dL (31.0-37.0); MCV 90.8 fL (80.0-100.0); Mean Platelet Volume 7.5; Monocytes # (A) 0.5 k/uL (0-1.0); Monocytes % (A) 7 %; Neutrophils # (A) 4.9 k/uL (1.3-7.7); Neutrophils % (A) 65 %; Platelet Count 216 k/uL (150-450); RBC 4.29 m/uL (4.30-5.90); RDW 13.5 % (11.5-15.5); WBC 7.6 k/uL (3.8-10.6)
[2023-07-20 12:34] LABS: INR 1.3 (<1.2); Partial Thromboplastin Time 71.9 sec (22.0-30.0); Prothrombin Time 13.3 sec (10.0-12.5)
[2023-07-20] MEDS ORDERED: LIDOCAINE 1% INJ 10MG/ML (20 ML MDV) ONE (12:59)
[2023-07-20] MEDS ORDERED: fentaNYL (PF) 50 MCG/ML 2 ML AMP ONE (13:04)
[2023-07-20] MEDS ORDERED: fentaNYL (PF) 50 MCG/ML 2 ML AMP IVP ONE ×2 (13:28→13:33)
[2023-07-20] MEDS ORDERED: SODIUM CHLORIDE 0.9% 500 ML 500 ML IV ONE (13:28)
[2023-07-20] MEDS ORDERED: LIDOCAINE 1% INJ 10MG/ML (5 ML VIAL-PF) SQ ONE (13:31)
[2023-07-20] MEDS ORDERED: LIDOCAINE 1% INJ 10MG/ML (30 ML VIAL-PF) SQ ONE (13:31)
[2023-07-20] MEDS ORDERED: MIDAZOLAM 2 MG/2 ML VIAL IVP ONE (13:33)
[2023-07-20] MEDS ORDERED: IOPAMIDOL-370 100ML BTL INJ ONE ×5 (13:49→14:47)
--- NOTE | 2023-07-20 14:08 | P.CRDCN ---
History of Present Illness Consult date: 07/20/23 Consult reason: chest pain History of present illness: History of present illness: This is an 83-year-old male patient of Dr. Patel last seen in the office in June 2021 with past medical history of coronary artery disease with [facility] 1998details are not available, history of CVA, hypertension, dyslipidemia, diabetes, family history of premature coronary artery disease, history of tobacco use. We've been asked to evaluate the patient for chest pain. Patient states he had sudden onset last evening of chest pain while he was watching TV he had just been up to the bathroom. He states he had this same type of pain about a couple weeks ago and went away on its own. He states he has a little bit of chest pain at the time of this evaluation. Initial blood pressure 170/107. Patient is seen in the emergency center waiting for a bed on the observation unit. EKG Q-wave in the in inferior septal area. Chest x-ray: No acute process Echocardiogram performed 07/20/2023 reveals reduced LV systolic function with EF of 50%. Predominantly septal, severe hypokinesis extending into the apex, inferior apical hypokinesis. CBC is unremarkable. INR is 1.3. Electrolytes normal. BUN 21 creatinine 0.91. Troponin 0.032, 7.49, 11.2. Magnesium 1.7. Liver function tests are normal. ProBNP 286. Home cardiac medications: Atorvastatin 40 mg at bedtime, Plavix 75 mg daily, levothyroxine 125 g daily, losartan 50 mg twice daily. Echocardiogram 2020 revealed normal EF, moderate MR, mild TR. Lexiscan stress test 2020 revealed normal EF, fixed anterior apical defect with reversible inferior and inferior septal defect. Review Of Systems: At the time of my evaluation: Constitutional: No fever, no chills. No weakness, fatigue or lethargy. EENT: No headache. No dizziness. Lungs: No shortness of breath, cough, no sputum production. No wheezing. Cardiovascular: + chest pain, no lower extremity edema. No palpitations. No paroxysmal nocturnal dyspnea. No orthopnea. No lightheadedness or dizziness. No syncopal episodes. Abdominal: No abdominal pain. No nausea, vomiting. No diarrhea. No constipation. No bloody or tarry stools. Genitourinary: No dysuria.. No urinary retention. Musculoskeletal: No myalgias. No muscle weakness, no frequent falls. No back pain. No neck pain. Integumentary: No wounds. No rash. No unusual bruising. Neurologic: No aphasia. No facial droop. No change in mentation. No head injury. No headache. Physical examination: Gen: This is an 83 year old male resting on the ER stretcher appears to be in no acute distress. VS: reviewed HEENT: Head is atraumatic, normocephalic. Pupils equal, round. Sclerae is anicteric. NECK: Supple. No JVD. . LUNGS: Clear to auscultation. No wheezes or rhonchi. No intercostal retractions. HEART: Regular rate and rhythm. 2/6 systolic ejection murmur. ABDOMEN: Soft No tenderness. EXTREMITIES: No pedal edema. No calf tenderness. NEUROLOGICAL: Patient is awake, alert and oriented x3. Assessment: Non-ST elevated myocardial infarction History of coronary artery disease with previous CABG in 1998 Hypertension Dyslipidemia Diabetes Family history of premature coronary artery disease History of tobacco use Plan: Start patient on a heparin drip Schedule patient for cardiac catheterization today with Dr. Patel Continue patient on aspirin 81 mg daily, atorvastatin 40 mg daily, Plavix 75 mg daily, losartan 50 mg twice daily, Nitrostat as needed Obtain TSH Further recommendations to follow based upon clinical course Thank you kindly for this consultation. Nurse practitioner note has been reviewed, I agree with documented findings and plan of care. Patient was seen and examined. Past Medical History Past Medical History: CVA/TIA, Diabetes Mellitus, Myocardial Infarction ([place]) Additional Past Medical History / Comment(s): [place] in August 2020, [place] 20 years ago, type 2 DM Last Myocardial Infarction Date:: 20 years ago History of Any Multi-Drug Resistant Organisms: None Reported Past Surgical History: Cholecystectomy, Coronary Bypass/CABG, Tonsillectomy Additional Past Surgical History / Comment(s): thyroidectomy, Past Anesthesia/Blood Transfusion Reactions: No Reported Reaction Past Psychological History: No Psychological Hx Reported Smoking Status: Former smoker Past Alcohol Use History: None Reported Past Drug Use History: None Reported - Past Family History Sister(s) Family Medical History: Dementia Father Additional Family Medical History / Comment(s): parkinsons Medications and Allergies Home Medications Medication Instructions Recorded Confirmed Type Atorvastatin Calcium [Lipitor] 40 mg PO HS 04/05/21 07/20/23 History Losartan Potassium [Cozaar] 50 mg PO BID 04/05/21 07/20/23 History metFORMIN HCL 1,000 mg PO BID 04/05/21 07/20/23 History Clopidogrel [Plavix] 75 mg PO DAILY #30 tab 04/07/21 07/20/23 Rx Acetaminophen Tab [Tylenol] 650 mg PO Q4H PRN 07/20/23 07/20/23 History Ascorbic Acid [Vitamin C] 500 mg PO DAILY 07/20/23 07/20/23 History Focus Factor 1 tab PO DAILY 07/20/23 07/20/23 History Levothyroxine Sodium [Synthroid] 125 mcg PO DAILY 07/20/23 07/20/23 History Tamsulosin HCl [Flomax] 0.4 mg PO DAILY 07/20/23 07/20/23 History Turmeric Root Extract [Turmeric] 500 mg PO DAILY 07/20/23 07/20/23 History Allergies Allergy/AdvReac Type Severity Reaction Status Date / Time Sulfa (Sulfonamide Allergy Rash/Hives Verified 07/20/23 07:26 Antibiotics) Physical Exam Vitals: Vital Signs Temp Pulse Resp BP Pulse Ox 07/20/23 05:00 74 16 133/69 97 07/20/23 04:08 55 L 16 137/79 97 07/20/23 02:06 98.2 F 87 18 170/107 98 Intake and Output 07/19/23 07/20/23 07/20/23 22:59 06:59 14:59 Other: Weight 77.111 kg Results 07/20/23 11:20 07/20/23 02:49 Cardiac Enzymes 07/20/23 07/20/23 07/20/23 Range/Units 02:49 02:49 07:18 AST 42 (17-59) U/L Troponin I 0.032 7.490 H* (0.000-0.034) ng/mL Coagulation 07/20/23 Range/Units 02:49 PT 12.3 (10.0-12.5) sec APTT 23.3 (22.0-30.0) sec CBC 07/20/23 Range/Units 02:49 WBC 7.8 (3.8-10.6) k/uL RBC 4.38 (4.30-5.90) m/uL Hgb 13.4 (13.0-17.5) gm/dL Hct 39.5 (39.0-53.0) % Plt Count 237 (150-450) k/uL Comprehensive Metabolic Panel 07/20/23 Range/Units 02:49 Sodium 139 (137-145) mmol/L Potassium 4.5 (3.5-5.1) mmol/L Chloride 102 (98-107) mmol/L Carbon Dioxide 23 (22-30) mmol/L BUN 21 H (9-20) mg/dL Creatinine 0.91 (0.66-1.25) mg/dL Glucose 164 H (74-99) mg/dL Calcium 9.5 (8.4-10.2) mg/dL AST 42 (17-59) U/L ALT 44 (4-49) U/L Alkaline Phosphatase 70 (38-126) U/L Total Protein 7.3 (6.3-8.2) g/dL Albumin 4.3 (3.5-5.0) g/dL Current Medications Generic Name Dose Route Start Last Admin Trade Name Freq PRN Reason Stop Dose Admin Atorvastatin Calcium 40 mg 07/20/23 21:00 Atorvastatin 40 Mg Tab PO HS [facility] Clopidogrel Bisulfate 75 mg 07/20/23 09:00 Clopidogrel 75 Mg Tab PO DAILY [facility] Heparin Sodium (Porcine) 0 unit 07/20/23 08:36 Heparin Sodium 1,000 Un/Ml (10ml Vl) IV PER PROTOCOL PRN Low PTT Protocol Heparin Sodium/Sodium Chloride 250 mls @ 9.253 mls/hr 07/20/23 09:00 25,000 unit/ Sodium Chloride IV .Q24H [facility] Protocol 12 UNITS/KG/HR Levothyroxine Sodium 125 mcg 07/20/23 09:00 Levothyroxine 125 Mcg Tab PO DAILY@0630 [facility] Losartan Potassium 50 mg 07/20/23 09:00 Losartan 50 Mg Tab PO BID [facility] Naloxone HCl 0.2 mg 07/20/23 05:27 Naloxone 0.4 Mg/Ml 1 Ml Vial IV Q2M PRN Opioid Reversal Intake and Output 07/19/23 07/20/23 07/20/23 22:59 06:59 14:59 Other: Weight 77.111 kg 07/20/23 02:49 07/20/23 02:49
[2023-07-20] MEDS: HEPARIN SODIUM 1,000 UN/ML (10ML VL) IVP ONE ×2 (14:12→14:23)
[2023-07-20] MEDS ORDERED: SODIUM CHLORIDE 0.9% 1,000 ML IV ONE (14:47)
[2023-07-20] MEDS ORDERED: MAG HYDROX/AL HYDROX/SIMETH 30 ML CUP PO PRN (15:02)
[2023-07-20] MEDS ORDERED: ATROPINE SULFATE 0.1 MG/ML 10ML SYRINGE IV PRN (15:02)
[2023-07-20] MEDS ORDERED: RX INFO: IV CONTRAST WAS GIVEN 1 EACH MISC MISCELLANE PRN (15:02)
[2023-07-20] MEDS ORDERED: SODIUM CHLORIDE 0.9% 1,000 ML in EMPTY BAG 1 BAG IV SCH (15:15)
--- NOTE | 2023-07-20 15:17 | P.CARDCATH ---
Date of Procedure: 07/20/23 Description of Procedure: Cardiac Catheterization: The patient is an 83-year-old female with a known history of CABG in 1998 who presented with symptoms of chest discomfort and evidence of non-STEMI. Recommendations were made regarding cardiac catheterization, the risks and the complications were discussed with the patient who is in full understanding and agreement. Procedure Description: Patient was brought to minilab operator in fasting semi-sedated state after receiving Fentanyl and Benadryl achieiving moderate conscious sedated state. Using Xylocaine Anesthesia and modified Seldinger technique, a 6-German sheath was introduced in the right femoral artery . Subsequently, selective coronary angiography was performed using a 6-German 4 bend Cory catheter. Multiple views of the coronary artery including hemiaxial views were obtained. The 6-German right Cory was used to cannulate the the SVG to the LAD and OM and ARITA, images of the graft were obtained. The 6-German pigtail catheter was used to cross the aortic valve and LVEDP was calculated. An GREEK view of the ascending aorta was performed. PCI: After removing the catheters a 6-German FR 4 guiding catheter was introduced and after cannulating the ostium of the SVG to the LAD with a 0.014 BMW J-wire was advanced into the retrograde limb of the LAD subsequently a 0.014 whisper J-wire with a fine cross microcatheter were used to advanced the wire in the distal LAD. The wire was exchanged to a 0.014 BMW J-wire and the microcatheter was removed. Subsequently a 2.5 x 12 mm NC Treck balloon was advanced and one inflation at 8 elyse was done, after removing the balloon a 2.5 x 18 mm was deployed at 16 elyse, subsequently a 4.0 x 8 mm NC Treck balloon was advanced and one inflation in the proximal segment of the stent was done at 10 elyse. After removing the wires images were obtained and revealed stable successful stenting. Following that, catheter and sheath were removed. Hemostasis was obtained with deployment of an Angio-Seal . There was no immediate complication. Patient was returned to room in stable condition. Of note, the patient received a total of 10,000 units of intravenous heparin and was continued on clopidogrel. He had no chest discomfort or EKG changes. His ACT was monitored. Findings: Fluoroscopy: Severe calcifications of the coronary arteries was noted. Left main: This vessel is severely calcified has diffuse disease up to 99% throughout its course. It bifurcates into LAD and left circumflex LAD: This vessel is totally occluded proximally with no significant antegrade flow Left circumflex: In this vessel is diffusely diseased giving rise to 3 obtuse marginal branch of small to moderate caliber. In the midsegment of the left circumflex there is an area of stenosis of 95% RCA: This vessel is totally occluded proximally with no significant antegrade flow SVG to the LAD: The proximal anastomotic site is patent. The distal anastomotic site has a 99% stenosis in the downstream limb with good retrograde flow into a diagonal branch SVG to the OM the proximal and distal anastomotic sites are patent. The flow in the OM is brisk. The ostium of the graft has a 60% stenosis and there is another plaque of 60-70% stenosis at the distal segment of the graft and proximal alatna vessel Aortogram: Aortogram was performed in the GREEK view revealed a tricuspid aortic valve, 2 saphenous vein graft were visualized. ARITA: The ARITA is patent but is not and is to most to any vessel Left Ventriculogram: Not performed Hemodynamics: There was no gradient across the aortic valve , LVEDP was 16-20 mmHg Conclusion: 1. Severely calcified coronary arteries 2. Chronically occluded LAD and RCA 3. Severe stenosis in the left main 4. Severe disease in the alatna left circumflex 5. Critical stenosis at the distal anastomotic site of the LAD 6. Moderate to significant disease in the SVG to the OM 7. Successful stenting of the distal anastomotic site of the SVG to the LAD with reduction of stenosis from 99% to less than 5% Recommendations: The patient will continue on aspirin and Plavix without any interruption for one year in addition to aggressive coronary risk modification, maintaining LDL to less than 70 mg/dL. The findings and the recommendations were discussed with the patient and the family and they were in full understanding and agreement. Duration of sedation is 126 minutes.
--- NOTE | 2023-07-20 15:17 | P.HPIM ---
History of Present Illness H&P Date: 07/20/23 Is a pleasant 83-year-old male with medical history of stroke with residual slurred speech, diabetes mellitus, bypass grafting back in 1992. Patient presents with chest pain and diaphoresis. He states that he was up at 2 AM playing cards when he began experiencing pain in the midsternal region he states the pain was about a 7 out of 10 describes like a pressure-like sensation he denied any burning sensation. He also had an associated diaphoretic episodes states that he broke out in cold sweats. He was also slightly nauseous. He was concerned and so his daughter brought him to the ER for evaluation. Dtr also states that he is seeing his PCP with concern for right sided kidney stones. He was also having some right sided flank pain. He has no shortness of breath no dizziness or lightheadedness he has no fever or chills no nausea vomiting diarrhea. Patient's EKG on admission shows sinus rhythm with a right bundle branch block with T-wave abnormality. First troponin level was normal with repeat set 7.490 and troponin level peaked at 11.200. Patient was admitted to the hospital with consult placed to cardiology he was started on IV heparin drip echocardiac and responded and likely patient be taken for a cardiac catheterization today. At the time of my examination he reports chest pain has resolved. REVIEW OF SYSTEMS: CONSTITUTIONAL: No fever, no malaise, no fatigue. HEENT: No recent visual problems or hearing problems. Denied any sore throat. CARDIOVASCULAR: No chest pain, orthopnea, PND, no palpitations, no syncope. PULMONARY: No shortness of breath, no cough, no hemoptysis. GASTROINTESTINAL: No diarrhea, no nausea, no vomiting, no abdominal pain. NEUROLOGICAL: No headaches, no weakness, no numbness. HEMATOLOGICAL: Denies any bleeding or petechiae. GENITOURINARY: Denies any burning micturition, frequency, or urgency. MUSCULOSKELETAL/RHEUMATOLOGICAL: Denies any joint pain, swelling, or any muscle pain. ENDOCRINE: Denies any polyuria or polydipsia. The rest of the 14-point review of systems is negative. PHYSICAL EXAMINATION: GENERAL: The patient is alert and oriented x3, not in any acute distress. Well developed, well nourished. HEENT: Pupils are round and equally reacting to light. EOMI. No scleral icterus. No conjunctival pallor. Normocephalic, atraumatic. No pharyngeal erythema. No thyromegaly. CARDIOVASCULAR: S1 and S2 present. No murmurs, rubs, or gallops. PULMONARY: Chest is clear to auscultation, no wheezing or crackles. ABDOMEN: Soft, nontender, nondistended, normoactive bowel sounds. No palpable organomegaly. MUSCULOSKELETAL: No joint swelling or deformity. EXTREMITIES: No cyanosis, clubbing, or pedal edema. NEUROLOGICAL: Gross neurological examination did not reveal any focal deficits. SKIN: No rashes. Assessment Chest pain with troponin elevation due to non-STEMI patient will be taken for cardiac catheterization Hx of coronary artery disease with prior bypass grafting many years ago Diabetes Mellitus type 2, non insulin dependent, controlled, metformin will be held and can resume 48 hours after receiving contrast. History of stroke with residual slurred speech Hx of myocardial infarction Hx cholecystectomy GI prophylaxis DVT prophylaxis on IV heparin Plan Cardiology consultation Echocardiogram taken and pending Patient to undergo cardiac catheterization later today Hold metformin Resume home medications The impression and plan of care has been dictated by Aleksandra Abdullahi Nurse Practitioner as directed. Dr. Santos MD I have performed a history and physical examination and medical decision making of this patient, discussed the same with the dictator, and agree with the dictators assessment and plan as written, documented as a scribe. Based on total visit time, I have performed more than 50% of this visit. Past Medical History Past Medical History: CVA/TIA, Diabetes Mellitus, Myocardial Infarction ([place]) Additional Past Medical History / Comment(s): [place] in August 2020, [place] 20 years ago, type 2 DM Last Myocardial Infarction Date:: 20 years ago History of Any Multi-Drug Resistant Organisms: None Reported Past Surgical History: Cholecystectomy, Coronary Bypass/CABG, Tonsillectomy Additional Past Surgical History / Comment(s): thyroidectomy, Past Anesthesia/Blood Transfusion Reactions: No Reported Reaction Past Psychological History: No Psychological Hx Reported Smoking Status: Former smoker Past Alcohol Use History: None Reported Past Drug Use History: None Reported - Past Family History Sister(s) Family Medical History: Dementia Father Additional Family Medical History / Comment(s): parkinsons Medications and Allergies Home Medications Medication Instructions Recorded Confirmed Type Atorvastatin Calcium [Lipitor] 40 mg PO HS 04/05/21 07/20/23 History Losartan Potassium [Cozaar] 50 mg PO BID 04/05/21 07/20/23 History metFORMIN HCL 1,000 mg PO BID 04/05/21 07/20/23 History Clopidogrel [Plavix] 75 mg PO DAILY #30 tab 04/07/21 07/20/23 Rx Acetaminophen Tab [Tylenol] 650 mg PO Q4H PRN 07/20/23 07/20/23 History Ascorbic Acid [Vitamin C] 500 mg PO DAILY 07/20/23 07/20/23 History Focus Factor 1 tab PO DAILY 07/20/23 07/20/23 History Levothyroxine Sodium [Synthroid] 125 mcg PO DAILY 07/20/23 07/20/23 History Tamsulosin HCl [Flomax] 0.4 mg PO DAILY 07/20/23 07/20/23 History Turmeric Root Extract [Turmeric] 500 mg PO DAILY 07/20/23 07/20/23 History Allergies Allergy/AdvReac Type Severity Reaction Status Date / Time Sulfa (Sulfonamide Allergy Rash/Hives Verified 07/20/23 07:26 Antibiotics) Physical Exam Vitals: Vital Signs Temp Pulse Resp BP Pulse Ox 07/20/23 12:30 72 18 146/68 98 07/20/23 09:00 97.6 F 55 L 18 156/76 95 07/20/23 05:00 74 16 133/69 97 07/20/23 04:08 55 L 16 137/79 97 07/20/23 02:06 98.2 F 87 18 170/107 98 Intake and Output 07/20/23 07/20/23 07/20/23 06:59 14:59 22:59 Intake Total 600 Balance 600 Intake: IV 600 Other: Weight 77.111 kg Results CBC & Chem 7: 07/20/23 11:20 07/20/23 02:49 Labs: Abnormal Lab Results - Last 24 Hours (Table) 07/20/23 07/20/23 07/20/23 Range/Units 02:49 07:18 11:20 RBC (4.30-5.90) m/uL Hct (39.0-53.0) % PT (10.0-12.5) sec INR (<1.2) APTT (22.0-30.0) sec BUN 21 H (9-20) mg/dL Glucose 164 H (74-99) mg/dL Troponin I 7.490 H* 11.200 H* (0.000-0.034) ng/mL 07/20/23 07/20/23 07/20/23 Range/Units 11:20 11:20 11:20 RBC 4.29 L (4.30-5.90) m/uL Hct 38.9 L (39.0-53.0) % PT 13.3 H (10.0-12.5) sec INR 1.3 H (<1.2) APTT 71.9 H 71.3 H (22.0-30.0) sec BUN (9-20) mg/dL Glucose (74-99) mg/dL Troponin I (0.000-0.034) ng/mL Assessment and Plan Time with Patient: Less than 30
[2023-07-20] MEDS: ISOSORBIDE MONONITRATE ER 30 MG TAB.ER.24H PO SCH (17:09)
--- NOTE | 2023-07-20 17:53 | CT ---
EXAMINATION TYPE: CT brain wo con CT DLP: 1076.7 mGycm, Automated exposure control for dose reduction was used. DATE OF EXAM: 07/20/2023 5:43 PM COMPARISON: 04/05/2021. CLINICAL INDICATION:Male, 83 years old with history of ALTERED MENTAL STATUS, ams TECHNIQUE: Brain: Axial CT images of the brain were obtained with coronal and sagittal reformats created and rev iewed. Contrast used: None. Oral contrast used: None. FINDINGS: Brain: Extra-axial spaces: No abnormal extra-axial fluid collections. Ventricular system: Dilatation in proportion to cerebral atrophy. Cerebral parenchyma: Encephalomalacia from left frontal lobe prior injury. Cerebral atrophy. No acute intraparenchymal hemorrhage or mass effect. The rossi-white junction is well differentiated. Scatter ed hypoattenuating areas are seen within the white matter. Cerebellum: Unremarkable. Mass effect: No evidence of midline shift. Intracranial vasculature: Atherosclerotic calcifications of the intracranial vessels. Soft tissues: Normal. Calvarium/osseous structures: No depressed skull fracture. Paranasal sinuses and mastoid air cells: Mild scattered paranasal sinus disease. Visualized orbits: Orbital contents are intact. IMPRESSION: 1. No acute intracranial process. 2. Nonspecific white matter changes, likely secondary to chronic small vessel ischemic disease. 3. Remote left frontal lobe CVA.
--- NOTE | 2023-07-20 20:36 | US ---
EXAMINATION TYPE: US carotid duplex BILAT DATE OF EXAM: 07/20/2023 COMPARISON: CTA 2020 CLINICAL INDICATION: Male, 83 years old with history of TIA; LT lt side stenosis 2020, heart cath thi s morning TECHNIQUE: Carotid duplex ultrasound examination. Indirect Doppler criteria was utilized. FINDINGS: EXAM MEASUREMENTS: RIGHT: Peak Systolic Velocity (PSV) cm/sec ----- Right CCA: 79.1 ----- Right ICA: 107.0 ----- Right ECA: 108.4 ICA/CCA ratio: 1.4 RIGHT: End Diastole cm/sec ----- Right CCA: 20.4 ----- Right ICA: 24.8 ----- Right ECA: 24.8 LEFT: Peak Systolic Velocity (PSV) cm/sec ----- Left CCA: 64.6 ----- Left ICA: 87.9 ----- Left ECA: 159.5 ICA/CCA ratio: 1.4 LEFT: End Diastole cm/sec ----- Left CCA: 10.2 ----- Left ICA: 30.9 ----- Left ECA: 5.7 VERTEBRALS (direction of flow): Right Vertebral: Antegrade Left Vertebral: Antegrade Rhythm: Normal BILLBOARD ERECTOR NOTES: Mild atherosclerotic, elevated Lt. mid CCA velocity, likely due to tortuous course of vessel, Lt ICA origin appears narrowed by plaque consistent with CTA but velocities are wnl IMPRESSION: Less than 50% stenosis of the bilateral carotid bifurcations. Criteria for Assigning % of Stenosis / Diameter reduction (Estimation based on the indirect measurements of the internal carotid artery velocities (ICA PSV). 1. Normal (no stenosis)=ICA PSV < 125 cm/s: ratio < 2.0: ICA EDV<40 cm/s. 2. Less than 50% stenosis=ICA PSV < 125 cm/s: ratio < 2.0: ICA EDV<40 cm/s. 3. 50 to 69% stenosis=ICA PSV of 125 to 230 cm/s: ration 2.0 ? 4.0: ICA EDV 40-100 cm/s. 4. Greater than 70% stenosis to near occlusion= ICA PSV > 230 cm/s: ratio > 4.0: ICA EDV > 100 cm/s. 5. Near occlusion= ICA PSV velocities may be low or undetectable: variable ratio and ICA EDV. 6. Total occlusion=unable to detect flow.
[2023-07-20] MEDS: METOPROLOL TARTRATE 25 MG TAB PO SCH (21:03)
[2023-07-20] MEDS: ATORVASTATIN 40 MG TAB PO SCH (21:03)
[2023-07-20] MEDS: ZOLPIDEM 5 MG TAB PO PRN (23:16)
[2023-07-21] MEDS: LEVOTHYROXINE 125 MCG TAB PO SCH (06:25)
[2023-07-21] MEDS: METOPROLOL TARTRATE 25 MG TAB PO SCH ×2 (09:35→20:57)
[2023-07-21] MEDS: ISOSORBIDE MONONITRATE ER 30 MG TAB.ER.24H PO SCH (09:35)
[2023-07-21] MEDS: CLOPIDOGREL 75 MG TAB PO SCH (09:35)
[2023-07-21] MEDS: LOSARTAN 50 MG TAB PO SCH ×2 (09:35→20:57)
[2023-07-21] MEDS: HEPARIN SODIUM,PORCINE 5,000 UNIT/ML 1 ML VIAL SQ SCH ×2 (09:35→20:57)
[2023-07-21] MEDS: ASPIRIN 81 MG PO SCH (09:35)
[2023-07-21] MEDS: ASCORBIC ACID 500 MG TAB PO SCH (09:35)
[2023-07-21] MEDS: TAMSULOSIN 0.4 MG CAP.ER.24H PO SCH (09:35)
--- NOTE | 2023-07-21 11:15 | P.CNNES ---
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 He states that he was playing solitaire at night, then went to sleep, and woke up from sleep with chest pain and cold sweats. He called his daughter, who brought her to the hospital. Patient underwent cardiac catheterization and cardiac stenting earlier today at 2 PM. He came to the floor at 3 PM. Patient was talking fine, went around 5 PM he suddenly became aphasic, unable to talk, that lasted for about 10 minutes. There was another 10 minutes of fogginess, slow to respond and then he returned back to baseline. There was no other neurological symptoms reported like facial droop, focal numbness, tingling or any visual disturbance. Patient tells me that he does remember that he was talking to the nurse and all of a sudden he couldn't make sound. He knew what he wanted to say, but couldn't bring it out. Vital signs arrival blood pressure 170/107, which came down to 137/79. Pulse rate 87 temperature 98.2. Blood test shows normal CBC, PT/PTT, electrolytes are normal, BUN is 21, creatinine normal, hepatic panel normal, troponin is elevated 11.20. EKG shows sinus rhythm with right bundle-branch block. Anteroseptal IL. Chest x-ray revealed no evidence for acute pulmonary disease. Patient has presented with TIA with right-sided weakness and facial droop on 04/05/2021, for which patient was seen by Dr. Crain. It was reported patient has history of stroke in August 2020 with residual Broca's aphasia. Patient does have diabetes and bypass surgery. Patient had an EEG on 01/17/2022, which revealed abnormal EEG due to recording of rare (5) sharp waves seen sporadically over the left temporal region. This suggests focal cortical neuronal irritability and tendency for seizures. Clinical correlation is strongly recommended. No electrographic seizures were recorded. Patient at that time was taking aspirin. Patient was placed on DAP for 21 days and thereafter recommended to stop aspirin and continue Plavix. Patient was also on Lipitor 40 mg. Patient was also on Keppra 500 mg twice a day. Patient has history of hypertension, diabetes for around 20 years, denies any tobacco or alcohol use. Patient lives by himself, does not use any assistive device for ambulation. He has 2 daughters, and they live close by and check on him.patient denies any history of seizures. Patient does take aspirin 81 mg and Plavix 75 mg daily. Home medications include Plavix 75 mg, Lipitor 40 mg, thyroxine, losartan, metformin 1000 mg twice a day, Flomax. Review of Systems Constitutional: Denies chills, Denies fever Eyes: denies blurred vision, denies diplopia, denies discharge, denies pain Ears: deny: decreased hearing, ear discharge Ears, nose, mouth and throat: Denies headache, Denies sore throat, Denies vertigo Cardiovascular: Reports chest pain, Denies lightheadedness, Denies shortness of breath Respiratory: Denies cough, Denies excessive sputum Gastrointestinal: Reports diarrhea, Denies abdominal pain, Denies nausea, Denies vomiting Genitourinary: Denies dysuria, Denies flank pain, Denies incontinence Musculoskeletal: Denies low back pain, Denies myalgias, Denies neck pain, Denies neck stiffness Integumentary: Denies pruritus, Denies rash Neurological: Reports as per HPI Psychiatric: Reports depression, Denies anxiety Endocrine: Denies fatigue, Denies weight change Hematologic/Lymphatic: Denies easy bleeding, Denies easy bruising Past Medical History Past Medical History: CVA/TIA, Diabetes Mellitus, Myocardial Infarction (IL) Additional Past Medical History / Comment(s): Stoke in August 2020, IL 20 years ago, type 2 DM Last Myocardial Infarction Date:: 20 years ago History of Any Multi-Drug Resistant Organisms: None Reported Past Surgical History: Cholecystectomy, Coronary Bypass/CABG, Tonsillectomy Additional Past Surgical History / Comment(s): thyroidectomy, Past Anesthesia/Blood Transfusion Reactions: No Reported Reaction Past Psychological History: No Psychological Hx Reported Smoking Status: Former smoker Past Alcohol Use History: None Reported Past Drug Use History: None Reported - Past Family History Sister(s) Family Medical History: Dementia Father Additional Family Medical History / Comment(s): parkinsons Medications and Allergies Home Medications Medication Instructions Recorded Confirmed Type Atorvastatin Calcium [Lipitor] 40 mg PO HS 04/05/21 07/20/23 History Losartan Potassium [Cozaar] 50 mg PO BID 04/05/21 07/20/23 History metFORMIN HCL 1,000 mg PO BID 04/05/21 07/20/23 History Clopidogrel [Plavix] 75 mg PO DAILY #30 tab 04/07/21 07/20/23 Rx Acetaminophen Tab [Tylenol] 650 mg PO Q4H PRN 07/20/23 07/20/23 History Ascorbic Acid [Vitamin C] 500 mg PO DAILY 07/20/23 07/20/23 History Focus Factor 1 tab PO DAILY 07/20/23 07/20/23 History Levothyroxine Sodium [Synthroid] 125 mcg PO DAILY 07/20/23 07/20/23 History Tamsulosin HCl [Flomax] 0.4 mg PO DAILY 07/20/23 07/20/23 History Turmeric Root Extract [Turmeric] 500 mg PO DAILY 07/20/23 07/20/23 History Allergies Allergy/AdvReac Type Severity Reaction Status Date / Time Sulfa (Sulfonamide Allergy Rash/Hives Verified 07/20/23 07:26 Antibiotics) Physical Examination - Vital Signs Vital Signs: Vital Signs Temp Pulse Pulse Resp BP BP Pulse Ox 07/20/23 16:08 97.7 F 70 12 156/96 07/20/23 12:30 72 18 146/68 98 07/20/23 09:00 97.6 F 55 L 18 156/76 95 07/20/23 05:00 74 16 133/69 97 07/20/23 04:08 55 L 16 137/79 97 07/20/23 02:06 98.2 F 87 18 170/107 98 Intake and Output 07/20/23 07/20/23 07/20/23 06:59 14:59 22:59 Intake Total 600 Output Total 250 Balance 600 -250 Intake: IV 600 Output: Urine 250 Other: Weight 77.111 kg Patient is an elderly male, in no acute distress. Patient is alert awake oriented to time place and person. Patient knows it is July and the year is 2022 and that is in [facility] in [place] and name of the current president. Speech is mildly dysarthric, which is baseline and language functions are normal. Patient can name and repeat very well. Attention, concentration and fund of knowledge is adequate. On cranial nerve examination, pupils are equal, round and reacting to light, visual loyd are full on confrontation, with no neglect on double simultaneous stimulation. Extraocular muscles are intact with no nystagmus. Face is symmetric, tongue protrudes to the midline. Palatal elevation and sensation normal, hearing and shoulder shrug normal, facial sensation normal. On muscle strength testing, there is no pronator drift and the strength is normal in arms and legs distally and proximally. Deep tendon reflexes are symmetric biceps 2+, brachioradialis 2+, knees 2, ankles 0 and plantars downgoing bilaterally Sensory to touch is equal with no neglect on double simultaneous stimulation. Cerebellar function showed no ataxia for [id number] testing. No dysdiadochokinesia. No ataxia for [id number] testing on either side. Tone and bulk of muscles normal. Rapid finger tapping normal. Gait deferred.. On general examination, there is no carotid bruit or murmur, S1-S2 audible. Chest is clear on consultation. Abdomen is soft nontender. No organomegaly, bowel sounds present. Peripheral pulses are present. No peripheral edema. Results - Laboratory Findings CBC and BMP: 07/21/23 11:17 07/21/23 11:17 Abnormal Lab Findings: Abnormal Labs 07/20/23 07/20/23 07/20/23 02:49 07:18 11:20 RBC Hct PT INR APTT BUN 21 H Glucose 164 H Troponin I 7.490 H* 11.200 H* 07/20/23 07/20/23 07/20/23 11:20 11:20 11:20 RBC 4.29 L Hct 38.9 L PT 13.3 H INR 1.3 H APTT 71.9 H 71.3 H BUN Glucose Troponin I Assessment and Plan Assessment: * Probable TIA manifesting with transient expressive aphasia (more than baseline), that lasted for about 10-20 minutes and then resolved. No other associated focal symptoms. Patient denies any loss of memory, or any seizure- like activity associated with this event. Cause of TIA is uncertain, if related to vascular or cardiac source * Acute [place], status post cardiac stenting * Hypertension * Diabetes * History of TIA 04/07/2021 (right-sided weakness and facial droop) * History of stroke in August 2020 with residual mild dysarthria * CAD, history of bypass surgery Plan: * Patient had a probable TIA, and the symptoms resolved. Patient's examination is at baseline. * 2-D echo revealed reduced left ventricular systolic function, with ejection fraction in the lower limits of normal of 50%. Predominantly septal, severe hypokinesis extending into the apex, inferior apical hypokinesis. Left atrium is mildly increased in volume. * Carotid Doppler, rule out stenosis * Fasting a.m. lipid panel * Hemoglobin A1c * Optimize control of blood pressure * Patient currently on aspirin 81 mg and Plavix 75 mg daily. Consider switching from Plavix to Brilinta. * Neuro checks as per protocol. * Telemetry monitoring rule out any arrhythmia * Check EEG to rule out epileptiform activity. * PT, OT, speech therapy * DVT prophylaxis: Heparin 5000 units subcu every 12 hours * Neurology will continue to follow. Thank you for the consult.
[2023-07-21 12:23] VITALS: BMI 23.7
--- NOTE | 2023-07-21 12:43 | P.PN ---
Subjective Progress Note Date: 07/21/23 Is a pleasant 83-year-old male with medical history of stroke with residual slurred speech, diabetes mellitus, bypass grafting back in 1992. Patient presents with chest pain and diaphoresis. He states that he was up at 2 AM playing cards when he began experiencing pain in the midsternal region he states the pain was about a 7 out of 10 describes like a pressure-like sensation he denied any burning sensation. He also had an associated diaphoretic episodes states that he broke out in cold sweats. He was also slightly nauseous. He was concerned and so his daughter brought him to the ER for evaluation. Dtr also states that he is seeing his PCP with concern for right sided kidney stones. He was also having some right sided flank pain. He has no shortness of breath no dizziness or lightheadedness he has no fever or chills no nausea vomiting diarrhea. Patient's EKG on admission shows sinus rhythm with a right bundle branch block with T-wave abnormality. First troponin level was normal with re peat set 7.490 and troponin level peaked at 11.200. Patient was admitted to the hospital with consult placed to cardiology he was started on IV heparin drip echocardiac and responded and likely patient be taken for a cardiac catheterization today. At the time of my examination he reports chest pain has resolved. 07/21/2023 Patient is evaluated today resting in bed with his daughter at the bedside. He is status post cardiac catheterization and underwent successful stenting of the distal anastomotic site of the SVG to the LAD. Patient to continue on a combination of aspirin and Plavix to continue for 1 year without interruption as well as aggressive coronary risk modification. Patient is also on high-dose statin. There is concern for altered mentation overnight per patient was confus ed and a brain CT was completed which did reveal a remote injury to the left frontal lobe. For this reason neurology was consulted. Patient also had a carotid Doppler done revealing less than 50% stenosis of the bilateral carotid bifurcations. His mentation is currently improved and back to baseline and daughter at the bedside agrees. His troponin did peak at 11.200. Lipid panel and hemoglobin A1c are pending. Echocardiogram reveals EF 50% and predominantly septal, severe hypokinesis into the apex, inferior apical hypokinesis. mild to mod MR. Review of Systems Constitutional: Denied any fatigue denied any fever. Cardio vascular: denied any chest pain, palpitations Gastrointestinal: denied any nausea, vomiting, diarrhea Pulmonary: Denied any shortness of breath cough Neurologic denied any new focal deficits All inpatient medications were reviewed and appropriate changes in these m edications as dictated in the interval history and assessment and plan. PHYSICAL EXAMINATION: GENERAL: The patient is alert and oriented x3, not in any acute distress. Well developed, well nourished. HEENT: Pupils are round and equally reacting to light. EOMI. No scleral icterus. No conjunctival pallor. Normocephalic, atraumatic. No pharyngeal erythema. No thyromegaly. CARDIOVASCULAR: S1 and S2 present. No murmurs, rubs, or gallops. PULMONARY: Chest is clear to auscultation, no wheezing or crackles. ABDOMEN: Soft, nontender, nondistended, normoactive bowel sounds. No palpable organomegaly. MUSCULOSKELETAL: No joint swelling or deformity. EXTREMITIES: No cyanosis, clubbing, or pedal edema. NEUROLOGICAL: Gross neurological examination did not reveal any focal deficits. SKIN: No rashes. Assessment Chest pain with troponin elevation due to non-STEMI status post stent SVG to the LAD Likely TIA and symptoms have resolved Hx of coronary artery disease with prior bypass grafting many years ago Diabetes Mellitus type 2, non insulin dependent, controlled, metformin will be held and can resume 48 hours after receiving contrast. History of stroke with residual slurred speech Hx of myocardial infarction Hx cholecystectomy GI prophylaxis DVT prophylaxis on IV heparin Plan Cardiology consultation Hold metformin Continues on aspirin/plavix and lipitor neurology recommending to transition from plavix to brilinta due to the likely TIA patient experienced post cath Neurology recommending EEG. PT/OT consulted The impression and plan of care has been dictated by Aleksandra Abdullahi, Nurse Practitioner as directed. Dr. Santos MD I have performed a history and physical examination and medical decision making of this patient, discussed the same with the dictator, and agree with the dictators assessment and plan as written, documented as a scribe. Based on total visit time, I have performed more than 50% of this visit. Objective - Vital Signs Vital signs: Vital Signs Temp 98.5 F 07/21/23 08:00 Pulse 55 L 07/21/23 08:00 Resp 17 07/21/23 08:00 BP 113/64 07/21/23 08:00 Pulse Ox 95 07/21/23 09:27 FiO2 Intake & Output 07/20/23 07/21/23 07/21/23 18:59 06:59 18:59 Intake Total 840 118 Output Total 250 Balance 590 118 Weight 77.111 kg Intake: IV 600 Oral 240 118 Output: Urine 250 Other: Voiding Method Toilet Toilet Urinal Urinal # Voids 1 - Labs CBC & Chem 7: 07/20/23 11:20 07/20/23 02:49 Labs: Abnormal Lab Results - Last 24 Hours (Table) 07/20/23 07/20/23 07/20/23 Range/Units 11:20 11:20 11:20 PT 13.3 H (10.0-12.5) sec INR 1.3 H (<1.2) APTT 71.9 H 71.3 H (22.0-30.0) sec Troponin I 11.200 H* (0.000-0.034) ng/mL Assessment and Plan Time with Patient: Less than 30
[2023-07-21 12:45] LABS: INR 1.2 (<1.2); Prothrombin Time 12.9 sec (10.0-12.5)
[2023-07-21 13:22] LABS: African American GFR (CKD) 90 (>60 ml/min/1.73 sqM); Anion Gap 11 mmol/L; Blood Urea Nitrogen 18 mg/dL (9-20); Calcium 8.6 mg/dL (8.4-10.2); Carbon Dioxide 21 mmol/L (22-30); Chloride 108 mmol/L (98-107); Glucose 155 mg/dL (74-99); Non-African American GFR(CKD) 78 (>60 ml/min/1.73 sqM); Potassium 4.4 mmol/L (3.5-5.1); Sodium 140 mmol/L (137-145)
[2023-07-21 13:29] LABS: Basophils % (A) 0 %; Eosinophils # (A) 0.1 k/uL (0-0.7); Eosinophils % (A) 2 %; HCT 34.3 % (39.0-53.0); HGB 11.7 gm/dL (13.0-17.5); Lymphocytes # (A) 1.1 k/uL (1.0-4.8); Lymphocytes % (A) 16 %; MCH 31.1 pg (25.0-35.0); MCHC 34.2 g/dL (31.0-37.0); MCV 90.9 fL (80.0-100.0); Mean Platelet Volume 7.9; Monocytes # (A) 0.5 k/uL (0-1.0); Monocytes % (A) 8 %; Neutrophils # (A) 5.2 k/uL (1.3-7.7); Neutrophils % (A) 73 %; Platelet Count 207 k/uL (150-450); RBC 3.77 m/uL (4.30-5.90); RDW 13.8 % (11.5-15.5); WBC 7.2 k/uL (3.8-10.6)
--- NOTE | 2023-07-21 18:43 | P.PN ---
Subjective Progress Note Date: 07/21/23 SUBJECTIVE: Status post PCI to the distal anastomotic site of SVG to LAD. Right groin axis site appears intact with no signs of hematoma or bleeding. Distal pulses are intact. No swelling in the bilateral 70. Hemodynamic stable. Hemoglobin 11.7, platelets 207, creatinine 0.9 BP 104/62, heart rate 60 Postoperatively there was a concern of possible TIA. While patient was coming indicating with the nurse in postop recovery area he had some expressive aphasia. Due to this stroke alert was activated. Patient had an MRI which did not show any evidence of new strokes. He has a prior history of CVA with residual expressive aphasia. It is questionable if he had real stroke or if his expressive aphasia discord worsened after moderate conscious sedation in the recovery area On today's exam he has not had any further neurological symptoms. Normal strength in bilateral upper and lower extremities, does have chronic expressive aphasia which is not changed. Patient is eager to go home PHYSICAL EXAMINATION Vital signs reviewed. Head: Normocephalic. Eyes: Sclerae nonicteric. Neck: Brisk carotid upstroke, no jugular venous distention. Lungs: Clear to auscultation. Heart: Regular rate and rhythm, S1-S2, no S3, no murmur or rub. Abdomen: Soft nontender, positive bowel sounds no organomegaly. Extremities: No edema, intact distal pulses. ASSESSMENT NSTEMI status post PCI to SVG to LAD Prior history of CABG hypertension dyslipidemia Type II Diabetes PLAN Neurologist changed his Plavix to Brilinta Continue aspirin 1 mg, Brilinta 90 mg twice a day High-intensity statin Losartan, metoprolol Okay to be discharged with outpatient follow-up with Dr. Patel Objective - Vital Signs Vital signs: Vital Signs Temp 99.0 F 07/21/23 16:00 Pulse 60 07/21/23 16:00 Resp 16 07/21/23 16:00 BP 104/62 07/21/23 16:00 Pulse Ox 97 07/21/23 16:00 FiO2 Intake & Output 07/20/23 07/21/23 07/21/23 18:59 06:59 18:59 Intake Total 840 598 Output Total 250 Balance 590 598 Weight 77.111 kg 77.111 kg Intake: IV 600 Oral 240 598 Output: Urine 250 Other: Voiding Method Toilet Toilet Urinal Urinal # Voids 1 3 - Labs CBC & Chem 7: 07/21/23 11:17 07/21/23 11:17 Labs: Abnormal Lab Results - Last 24 Hours (Table) 07/21/23 07/21/23 07/21/23 Range/Units 11:17 11:17 11:17 RBC 3.77 L (4.30-5.90) m/uL Hgb 11.7 L (13.0-17.5) gm/dL Hct 34.3 L (39.0-53.0) % PT 12.9 H (10.0-12.5) sec INR 1.2 H (<1.2) Chloride 108 H (98-107) mmol/L Carbon Dioxide 21 L (22-30) mmol/L Glucose 155 H (74-99) mg/dL
[2023-07-21] MEDS: TICAGRELOR 90 MG TAB PO SCH (20:57)
[2023-07-21] MEDS: ATORVASTATIN 40 MG TAB PO SCH (20:57)
[2023-07-21 23:13] LABS: Chol/HDL Ratio 1.87 Ratio; LDL Cholesterol,Calculated 16.9 mg/dL (0.0-131.0)
[2023-07-21] MEDS: ZOLPIDEM 5 MG TAB PO PRN (23:23)
[2023-07-22] MEDS: LEVOTHYROXINE 125 MCG TAB PO SCH (06:37)
[2023-07-22] MEDS: TAMSULOSIN 0.4 MG CAP.ER.24H PO SCH (08:15)
[2023-07-22] MEDS: LOSARTAN 50 MG TAB PO SCH ×2 (08:15→20:44)
[2023-07-22] MEDS: HEPARIN SODIUM,PORCINE 5,000 UNIT/ML 1 ML VIAL SQ SCH ×2 (08:15→20:44)
[2023-07-22] MEDS: METOPROLOL TARTRATE 25 MG TAB PO SCH ×2 (08:15→20:44)
[2023-07-22] MEDS: TICAGRELOR 90 MG TAB PO SCH ×2 (08:15→20:44)
[2023-07-22] MEDS: ASPIRIN 81 MG PO SCH (08:15)
[2023-07-22] MEDS: ASCORBIC ACID 500 MG TAB PO SCH (08:15)
[2023-07-22] MEDS: ISOSORBIDE MONONITRATE ER 30 MG TAB.ER.24H PO SCH (08:15)
--- NOTE | 2023-07-22 09:45 | P.PN ---
Subjective Progress Note Date: 07/21/23 Patient was seen for a follow-up. Patient is laying comfortably in the bed. Offers no complaints. No new focal symptoms. Objective - Vital Signs Vital signs: Vital Signs Temp 99.0 F 07/21/23 16:00 Pulse 60 07/21/23 16:00 Resp 16 07/21/23 16:00 BP 104/62 07/21/23 16:00 Pulse Ox 97 07/21/23 16:00 FiO2 Intake & Output 07/20/23 07/21/23 07/21/23 18:59 06:59 18:59 Intake Total 840 118 Output Total 250 Balance 590 118 Weight 77.111 kg 77.111 kg Intake: IV 600 Oral 240 118 Output: Urine 250 Other: Voiding Method Toilet Toilet Urinal Urinal # Voids 1 3 - Exam Examination essentially unchanged. - Labs CBC & Chem 7: 07/21/23 11:17 07/21/23 11:17 Labs: Abnormal Lab Results - Last 24 Hours (Table) 07/21/23 07/21/23 07/21/23 Range/Units 11:17 11:17 11:17 RBC 3.77 L (4.30-5.90) m/uL Hgb 11.7 L (13.0-17.5) gm/dL Hct 34.3 L (39.0-53.0) % PT 12.9 H (10.0-12.5) sec INR 1.2 H (<1.2) Chloride 108 H (98-107) mmol/L Carbon Dioxide 21 L (22-30) mmol/L Glucose 155 H (74-99) mg/dL Assessment and Plan Assessment: * Probable TIA manifesting with transient expressive aphasia (more than baseline), that lasted for about 10-20 minutes and then resolved. No other associated focal symptoms. Patient denies any loss of memory, or any seizure- like activity associated with this event. Cause of TIA is uncertain, if related to vascular or cardiac source * Acute [place], status post cardiac stenting * Hypertension * Diabetes * History of TIA 04/07/2021 (right-sided weakness and facial droop) * History of stroke in August 2020 with residual mild dysarthria * CAD, history of bypass surgery Plan: * Patient had a probable TIA, and the symptoms resolved. Patient's examination is at baseline. * 2-D echo revealed reduced left ventricular systolic function, with ejection fraction in the lower limits of normal of 50%. Predominantly septal, severe hypokinesis extending into the apex, inferior apical hypokinesis. Left atrium is mildly increased in volume. * Carotid Doppler revealed less than 50% stenosis of bilateral carotid bifurcation. Antegrade flow in both vertebral arteries. * Fasting a.m. lipid panel cholesterol 65, LDL 16, HDL 34 and triglycerides 66. Continue Lipitor 40 mg daily. * Hemoglobin A1c 7.5. Recommend optimize control of diabetes to target A1c < 7.0 * Optimize control of blood pressure * Patient has failed combination of aspirin 81 mg and Plavix 75 mg daily(taking at home prior to arrival). Patient had an acute [place], and also TIA while on this regimen. Will switch Plavix to Brilinta 90 mg twice a day. Continue aspirin 81 mg daily. * Neuro checks as per protocol. * Telemetry monitoring rule out any arrhythmia * Check EEG to rule out epileptiform activity. * PT, OT, speech therapy * DVT prophylaxis: Heparin 5000 units subcu every 12 hours * Dr. Arnulfo Crain Will resume neurology service on Sunday.
[2023-07-22] MEDS ORDERED: FLUTICASONE 50MCG/SPRAY NASAL 16GM EA NOSTRIL PRN (14:37)
[2023-07-22] MEDS ORDERED: SODIUM CHLORIDE 0.65% NASAL SPRAY 44 ML BTL NASAL PRN (14:37)
[2023-07-22] MEDS: LORATADINE 10 MG TAB PO SCH (16:44)
--- NOTE | 2023-07-22 19:23 | P.PN ---
Subjective Progress Note Date: 07/22/23 SUBJECTIVE: Status post PCI to the distal anastomotic site of SVG to LAD. Right groin axis site appears intact with no signs of hematoma or bleeding. Distal pulses are intact. No swelling in the bilateral 70. Hemodynamic stable. Postoperatively there was a concern of possible TIA. While patient was coming indicating with the nurse in postop recovery area he had some expressive aphasia. Due to this stroke alert was activated. Patient had an MRI which did not show any evidence of new strokes. He has a prior history of CVA with residual expressive aphasia. It is questionable if he had real stroke or if his expressive aphasia discord worsened after moderate conscious sedation in the recovery area On today's exam he has not had any further neurological symptoms. Normal strength in bilateral upper and lower extremities, does have chronic expressive aphasia which is not changed. Patient is eager to go home. Patient is doing well from cardiac vessel standpoint. PHYSICAL EXAMINATION Vital signs reviewed. Head: Normocephalic. Eyes: Sclerae nonicteric. Neck: Brisk carotid upstroke, no jugular venous distention. Lungs: Clear to auscultation. Heart: Regular rate and rhythm, S1-S2, no S3, no murmur or rub. Abdomen: Soft nontender, positive bowel sounds no organomegaly. Extremities: No edema, intact distal pulses. ASSESSMENT NSTEMI status post PCI to SVG to LAD Prior history of CABG hypertension dyslipidemia Type II Diabetes PLAN Neurologist changed his Plavix to Brilinta Continue aspirin 1 mg, Brilinta 90 mg twice a day High-intensity statin Losartan, metoprolol Okay to be discharged with outpatient follow-up with Dr. Patel. He is awaiting neurological evaluation and possible EEG tomorrow. Cardiology team will sign off at this time. Please reconsult us in case of any questions Objective - Vital Signs Vital signs: Vital Signs Temp 97.9 F 07/22/23 16:41 Pulse 51 L 07/22/23 16:41 Resp 18 07/22/23 16:41 BP 119/64 07/22/23 16:41 Pulse Ox 96 07/22/23 16:41 FiO2 Intake & Output 07/22/23 07/22/23 07/23/23 06:59 18:59 06:59 Intake Total 10 970 Balance 10 970 Intake: IV 10 10 Invasive Line 1 10 10 Oral 960 Other: Voiding Method Toilet Toilet Urinal Urinal # Voids 1 3 - Labs CBC & Chem 7: 07/21/23 11:17 07/21/23 11:17 Labs: Abnormal Lab Results - Last 24 Hours (Table) 07/21/23 07/21/23 Range/Units 11:17 11:17 Hemoglobin A1c 7.5 H (<=6.0) % HDL Cholesterol 34.80 L (40.00-60.00) mg/dL
[2023-07-22] MEDS: ATORVASTATIN 40 MG TAB PO SCH (20:44)
--- NOTE | 2023-07-22 22:15 | P.PN ---
Subjective Progress Note Date: 07/22/23 Is a pleasant 83-year-old male with medical history of stroke with residual slurred speech, diabetes mellitus, bypass grafting back in 1992. Patient presents with chest pain and diaphoresis. He states that he was up at 2 AM playing cards when he began experiencing pain in the midsternal region he states the pain was about a 7 out of 10 describes like a pressure-like sensation he denied any burning sensation. He also had an associated diaphoretic episodes states that he broke out in cold sweats. He was also slightly nauseous. He was concerned and so his daughter brought him to the ER for evaluation. Dtr also states that he is seeing his PCP with concern for right sided kidney stones. He was also having some right sided flank pain. He has no shortness of breath no dizziness or lightheadedness he has no fever or chills no nausea vomiting diarrhea. Patient's EKG on admission shows sinus rhythm with a right bundle branch block with T-wave abnormality. First troponin level was normal with re peat set 7.490 and troponin level peaked at 11.200. Patient was admitted to the hospital with consult placed to cardiology he was started on IV heparin drip echocardiac and responded and likely patient be taken for a cardiac catheterization today. At the time of my examination he reports chest pain has resolved. 07/21/2023 Patient is evaluated today resting in bed with his daughter at the bedside. He is status post cardiac catheterization and underwent successful stenting of the distal anastomotic site of the SVG to the LAD. Patient to continue on a combination of aspirin and Plavix to continue for 1 year without interruption as well as aggressive coronary risk modification. Patient is also on high-dose statin. There is concern for altered mentation overnight per patient was confus ed and a brain CT was completed which did reveal a remote injury to the left frontal lobe. For this reason neurology was consulted. Patient also had a carotid Doppler done revealing less than 50% stenosis of the bilateral carotid bifurcations. His mentation is currently improved and back to baseline and daughter at the bedside agrees. His troponin did peak at 11.200. Lipid panel and hemoglobin A1c are pending. Echocardiogram reveals EF 50% and predominantly septal, severe hypokinesis into the apex, inferior apical hypokinesis. mild to mod MR. 07/22/2023 Patient evaluated today sitting up in chair, patient wants to DC home today. Cardiology has cleared. Neurology recommending EEG. He is status post stenting SVT to the LAD no chest pain no shortness of breath. Renal function has normal ized. Hemoglobin A1C 7.5. Hemodynamically he is stable. Review of Systems Constitutional: Denied any fatigue denied any fever. Cardio vascular: denied any chest pain, palpitations Gastrointestinal: denied any nausea, vomiting, diarrhea Pulmonary: Denied any shortness of breath cough Neurologic denied any new focal deficits All inpatient medications were reviewed and appropriate changes in these medications as dictated in the interval history and assessment and plan. PHYSICAL EXAMINATION: GENERAL: The patient is alert and oriented x3, not in any acute distress. Well developed, well nourished. HEENT: Pupils are round and equally reacting to light. EOMI. No scleral icterus. No conjunctival pallor. Normocephalic, atraumatic. No pharyngeal erythema. No thyromegaly. CARDIOVASCULAR: S1 and S2 present. No murmurs, rubs, or gallops. PULMONARY: Chest is clear to auscultation, no wheezing or crackles. ABDOMEN: Soft, nontender, nondistended, normoactive bowel sounds. No palpable organomegaly. MUSCULOSKELETAL: No joint swelling or deformity. EXTREMITIES: No cyanosis, clubbing, or pedal edema. NEUROLOGICAL: Gross neurological examination did not reveal any focal deficits. SKIN: No rashes. Assessment Chest pain with troponin elevation due to non-STEMI status post stent SVG to th e LAD Likely TIA and symptoms have resolved Hx of coronary artery disease with prior bypass grafting many years ago Diabetes Mellitus type 2, non insulin dependent, controlled, metformin will be held and can resume 48 hours after receiving contrast. History of stroke with residual slurred speech Hx of myocardial infarction Hx cholecystectomy GI prophylaxis DVT prophylaxis on IV heparin Plan Cardiology consultation Hold metformin Continues on aspirin/plavix and lipitor neurology recommending to transition from plavix to brilinta due to the likely TIA patient experienced post cath Neurology recommending EEG. PT/OT consulted The impression and plan of care has been dictated by Aleksandra Abdullahi, Nurse Practitioner as directed. Dr. Santos MD I have performed a history and physical examination and medical decision making of this patient, discussed the same with the dictator, and agree with the dictators assessment and plan as written, documented as a scribe. Based on total visit time, I have performed more than 50% of this visit. Objective - Vital Signs Vital signs: Vital Signs Temp 97.9 F 07/22/23 16:41 Pulse 51 L 07/22/23 16:41 Resp 18 07/22/23 16:41 BP 119/64 07/22/23 16:41 Pulse Ox 96 07/22/23 16:41 FiO2 Intake & Output 07/22/23 07/22/23 07/23/23 06:59 18:59 06:59 Intake Total 10 970 Balance 10 970 Intake: IV 10 10 Invasive Line 1 10 10 Oral 960 Other: Voiding Method Toilet Toilet Urinal Urinal # Voids 1 3 - Labs CBC & Chem 7: 07/21/23 11:17 07/21/23 11:17 Labs: Abnormal Lab Results - Last 24 Hours (Table) 07/21/23 07/21/23 Range/Units 11:17 11:17 Hemoglobin A1c 7.5 H (<=6.0) % HDL Cholesterol 34.80 L (40.00-60.00) mg/dL Assessment and Plan Time with Patient: Less than 30
[2023-07-23] MEDS: LEVOTHYROXINE 125 MCG TAB PO SCH (05:31)
[2023-07-23] MEDS: TAMSULOSIN 0.4 MG CAP.ER.24H PO SCH (08:47)
[2023-07-23] MEDS: HEPARIN SODIUM,PORCINE 5,000 UNIT/ML 1 ML VIAL SQ SCH (08:47)
[2023-07-23] MEDS: ASCORBIC ACID 500 MG TAB PO SCH (08:47)
[2023-07-23] MEDS: ISOSORBIDE MONONITRATE ER 30 MG TAB.ER.24H PO SCH (08:47)
[2023-07-23] MEDS: METOPROLOL TARTRATE 25 MG TAB PO SCH (08:47)
[2023-07-23] MEDS: ASPIRIN 81 MG PO SCH (08:47)
[2023-07-23] MEDS: LOSARTAN 50 MG TAB PO SCH (08:47)
[2023-07-23] MEDS: TICAGRELOR 90 MG TAB PO SCH (08:47)
[2023-07-23] MEDS: LORATADINE 10 MG TAB PO SCH (08:47)
--- NOTE | 2023-07-23 09:54 | P.PN ---
Subjective Progress Note Date: 07/22/23 Patient was seen for a follow-up. Patient is laying comfortably in the bed. Patient appears slightly depressed, as he wanted to go home but not able to go till tomorrow. Patient's daughters and sons were present today. They are trying to console him. He slightly emotional. No new focal symptoms. P jaidenient's family does mention that patient gets intermittent brain fog. Objective - Vital Signs Vital signs: Vital Signs Temp 97.8 F 07/22/23 12:00 Pulse 65 07/22/23 13:13 Resp 16 07/22/23 12:00 BP 146/77 07/22/23 12:00 Pulse Ox 97 07/22/23 12:00 FiO2 Intake & Output 07/21/23 07/22/23 07/22/23 18:59 06:59 18:59 Intake Total 598 10 490 Balance 598 10 490 Weight 77.111 kg Intake: IV 10 10 Invasive Line 1 10 10 Oral 598 480 Other: Voiding Method Toilet Toilet Toilet Urinal Urinal Urinal # Voids 3 1 3 - Exam Examination essentially unchanged. Patient's family concurred that patient is completely back to baseline regarding his speech, memory, motor functions. - Labs CBC & Chem 7: 07/21/23 11:17 07/21/23 11:17 Labs: Abnormal Lab Results - Last 24 Hours (Table) 07/21/23 07/21/23 Range/Units 11:17 11:17 Hemoglobin A1c 7.5 H (<=6.0) % HDL Cholesterol 34.80 L (40.00-60.00) mg/dL Assessment and Plan Assessment: * Probable TIA manifesting with transient expressive aphasia (more than baseline), that lasted for about 10-20 minutes and then resolved. No other associated focal symptoms. Patient denies any loss of memory, or any seizure- like activity associated with this event. Cause of TIA is uncertain, if related to vascular or cardiac source * Acute OH, status post cardiac stenting * Hypertension * Diabetes * History of TIA 04/07/2021 (right-sided weakness and facial droop) * History of stroke in August 2020 with residual mild dysarthria * CAD, history of bypass surgery Plan: * Patient had a probable TIA with symptoms lasted for about 10-20 minutes, and the symptoms completely resolved. Patient's examination is at baseline. This is concurred by patient's family members that he is back to baseline. * 2-D echo revealed reduced left ventricular systolic function, with ejection fraction in the lower limits of normal of 50%. Predominantly septal, severe hypokinesis extending into the apex, inferior apical hypokinesis. Left atrium is mildly increased in volume. * Carotid Doppler revealed less than 50% stenosis of bilateral carotid bifurcation. Antegrade flow in both vertebral arteries. * Fasting a.m. lipid panel cholesterol 65, LDL 16, HDL 34 and triglycerides 66. Continue Lipitor 40 mg daily. * Hemoglobin A1c 7.5. Recommend optimize control of diabetes to target A1c < 7.0 * Optimize control of blood pressure * Patient has failed combination of aspirin 81 mg and Plavix 75 mg daily (taking at home prior to arrival). Patient had an acute OH, and also TIA while on this regimen. Will switch Plavix to Brilinta 90 mg twice a day. Continue aspirin 81 mg daily. * Neuro checks every shift. * Telemetry monitoring rule out any arrhythmia * Check EEG to rule out epileptiform activity. * PT, OT, speech therapy * DVT prophylaxis: Heparin 5000 units subcu every 12 hours * Discussed with family members in detail. * Dr. Arnulfo Crain Will resume neurology service on Sunday.
[2023-07-23 12:03] VITALS: PULSE 48; RESP 16; TEMP 97.7
[2023-07-23 13:21] VITALS: BP 82/60
--- NOTE | 2023-07-23 21:11 | EEG ---
ELECTROENCEPHALOGRAM REPORT CLINICAL HISTORY: This is an 83-year-old gentleman with reported transient expressive aphasia. The video EEG is obtained to evaluate for seizure and epileptiform activity. RELEVANT MEDICATIONS: The patient is on: 1. Xanax. 2. Ambien. DESCRIPTION: Wakefulness is only obtained. During awake state, the posterior-dominant rhythm consists of [id number] voltage of 8.5 to 9 Hz activity that is well modulated and well sustained. There is no physiological stage II sleep architecture. There is no focal slowing. INTERICTAL AND ICTAL: None. ACTIVATION PROCEDURE: Photic stimulation did not evoke a posterior driving response. There is no abnormality during the photic stimulation. Hyperventilation is not performed. CLINICAL INTERPRETATION: This is a normal routine EEG. There is no focal slowing, epileptiform discharges, or seizure on the EEG. A normal routine EEG does not rule out underlying epilepsy. Clinical correlation is recommended. BEN / CHINON: [id number] /
--- NOTE | 2023-07-24 09:59 | P.DS ---
Providers Date of admission: 07/20/23 14:38 Expected date of discharge: 07/23/23 Attending physician: Lance Cheney Consults: 07/20/23 05:27 Consult Physician Urgent Consulting Provider: Cardiology Edwige Consult Reason/Comments: chest pain, hx ascad Do you want consulting provider notified?: Yes 07/20/23 15:02 Consult Physician Routine Consulting Provider: Virginia Gibbons Consult Reason/Comments: Post Interventional Patient Do you want consulting provider notified?: Already Contacted 07/20/23 17:25 Consult Physician Routine Consulting Provider: Radha Robertson Consult Reason/Comments: ALTERED MENTAL STATUS Do you want consulting provider notified?: Yes Primary care physician: Neo Garcia [facility] Course: Final diagnosis Chest pain with troponin elevation due to non-STEMI status post stent SVG to the LAD Likely TIA , symptoms have resolved Hx of coronary artery disease with prior bypass grafting many years ago Diabetes Mellitus type 2, non insulin dependent, controlled, metformin will be held and can resume 48 hours after receiving contrast. History of stroke with residual slurred speech Hx of myocardial infarction Hx cholecystectomy GI prophylaxis DVT prophylaxis Full code Discharge disposition Patient is being discharged in a stable condition with guarded prognosis to home. Patient will follow-up with Dr. Garcia in the outpatient setting upon discharge. Patient is to follow-up with cardiology and neurology this week as scheduled. Total time taken is greater than 35 minutes. Hospital course This is a 83-year-old male who was recently admitted with chest pain and symptomatic with diaphoresis and sweating getting lightheaded and nauseated and brought to the emergency department found have a right bundle rey Lucio with T-wave abnormality with abnormal troponins and brought to the Baggage [facility] and is status post successful stenting of the distal an anastomotic site of the SVG to the LAD. Patient developed acute onset overnight of confusion underwent CT brain showing a remote injury to the left frontal lobe. Neurology evaluated underwent neurological workup most likely TIA. Patient also having some lower blood pressure readings and dizziness most likely secondary to metoprolol which will be reduced and patient has been instructed to follow-up with cardiology as well as neurology this week. Patient's heart rate in the low 40s and 50s recommend holding metoprolol for now and follow-up in the next 2 days with cardiology and primary care provider. Patient has been instructed to monitor blood pressure readings and keep a diary along with heart rate of all readings and bring with appointments. Patient has been cleared by cardiology and neurology for discharge today. Please refer to other consultation notes for further HPI. Patient is extremely anxious and would like to go home. Patient reports feeling improved. Patient encouraged and instructed to sit up at the site of the chair or bed prior to getting up for at least 1-2 minutes and then slowly proceed with getting up and feeling no dizziness or lightheadedness. Patient verbalized understanding. Currently no reports of chest pain, shortness of breath, or palpitations. Patient is afebrile. No reports of nausea or vomiting and patient is tolerating diet. Patient will be discharged home today. Guarded prognosis. Physical exam: Gen: This is a 83-year-old male who is awake, alert and oriented 3, thin built, well-developed, elderly-appearing HEENT: Head is atraumatic, normocephalic. Pupils equal, round. Sclerae is anicteric. NECK: Supple. No JVD. No lymphadenopathy. No thyromegaly. LUNGS: Clear to auscultation. No wheezes or rhonchi. No intercostal retractions. HEART: S1, S2 are muffled ABDOMEN: Soft. Thin. Bowel sounds are present. No masses. No tenderness. EXTREMITIES: No pedal edema. No calf tenderness. NEUROLOGICAL: Patient is awake, alert and oriented x3. Cranial nerves 2 through 12 are grossly intact. Please refer to medication reconciliation sheet for a list of medications. The impression and plan of care has been dictated by Isidra Garnett, Nurse Practitioner as directed. Dr. Shravan MD I have performed a history and examination and MDM of this patient, discussed the same with the dictator, and agree with the dictator's assessment and plan as written ,documented as a scribe. Based on total visit time, I have performed more than 50% of the visit. Patient Condition at Discharge: Stable Plan - Discharge Summary Discharge Rx Participant: No New Discharge Prescriptions: New Isosorbide Mononitrate ER [Imdur] 30 mg PO DAILY #30 tab Aspirin 81 mg PO DAILY #30 tab Ticagrelor [Brilinta] 90 mg PO BID #60 tab Loratadine [Claritin] 5 mg PO DAILY 30 Days #15 tab Nitroglycerin Sl Tabs [Nitrostat] 0.4 mg SUBLINGUAL Q5M PRN #20 tab PRN Reason: Chest Pain Continue Losartan Potassium [Cozaar] 50 mg PO BID metFORMIN HCL 1,000 mg PO BID Tamsulosin HCl [Flomax] 0.4 mg PO DAILY Acetaminophen Tab [Tylenol] 650 mg PO Q4H PRN PRN Reason: Pain Atorvastatin Calcium [Lipitor] 40 mg PO HS Clopidogrel [Plavix] 75 mg PO DAILY #30 tab Turmeric Root Extract [Turmeric] 500 mg PO DAILY Ascorbic Acid [Vitamin C] 500 mg PO DAILY Levothyroxine Sodium [Synthroid] 125 mcg PO DAILY Focus Factor 1 tab PO DAILY Discharge Medication List Atorvastatin Calcium [Lipitor] 40 mg PO HS 04/05/21 [History] Losartan Potassium [Cozaar] 50 mg PO BID 04/05/21 [History] metFORMIN HCL 1,000 mg PO BID 04/05/21 [History] Clopidogrel [Plavix] 75 mg PO DAILY #30 tab 04/07/21 [Rx] Acetaminophen Tab [Tylenol] 650 mg PO Q4H PRN 07/20/23 [History] Ascorbic Acid [Vitamin C] 500 mg PO DAILY 07/20/23 [History] Focus Factor 1 tab PO DAILY 07/20/23 [History] Levothyroxine Sodium [Synthroid] 125 mcg PO DAILY 07/20/23 [History] Tamsulosin HCl [Flomax] 0.4 mg PO DAILY 07/20/23 [History] Turmeric Root Extract [Turmeric] 500 mg PO DAILY 07/20/23 [History] Aspirin 81 mg PO DAILY #30 tab 07/23/23 [Rx] Isosorbide Mononitrate ER [Imdur] 30 mg PO DAILY #30 tab 07/23/23 [Rx] Loratadine [Claritin] 5 mg PO DAILY 30 Days #15 tab 07/23/23 [Rx] Nitroglycerin Sl Tabs [Nitrostat] 0.4 mg SUBLINGUAL Q5M PRN #20 tab 07/23/23 [Rx] Ticagrelor [Brilinta] 90 mg PO BID #60 tab 07/23/23 [Rx] Follow up Appointment(s)/Referral(s): Regulo Auguste MD [REFERRING] - 1 Week (office will call to schedule appointment ) Giancarlo Vick MD [STAFF PHYSICIAN] - 1 Week (office will call daughter Jeanna to make appointment ) Neo Garcia MD [Primary Care Provider] - 07/24/23 1:45 pm Patient Instructions/Handouts: Transient Ischemic Attack (DC), Heart Attack (DC), Chest Pain (DC) Activity/Diet/Wound Care/Special Instructions: Activity Limited until follow-up Follow-up with cardiology this week Follow-up with primary care provider this week Follow-up with neurology in 1-2 weeks Continue taking medications as prescribed Continue holding metoprolol for low heart rate and dizziness and follow-up with cardiology as well as primary care provider Discharge Disposition: HOME SELF-CARE
== END 2023-07-23 15:26 | disposition home or self-care (01) | DRG 322 ==
LOC: EC 02:02 → 6NMEDSUR 05:27 → OBSVTOIN 14:38 → 3SCARD 14:46
PROVIDERS: ADMIT Hospitalist; ATTEND Hospitalist
PROC: 4A023N7 Measurement of Cardiac Sampling and Pressure, Left Heart, Percutaneous Approach (ICD-10-PCS; principal; 2023-07-20 12:05)
PROC: 027034Z Dilation of Coronary Artery, One Artery with Drug-eluting Intraluminal Device, Percutaneous Approach (ICD-10-PCS; principal; 2023-07-20 12:05)
PROC: B2151ZZ Fluoroscopy of Left Heart using Low Osmolar Contrast (ICD-10-PCS; principal; 2023-07-20 12:05)
PROC: B2121ZZ Fluoroscopy of Single Coronary Artery Bypass Graft using Low Osmolar Contrast (ICD-10-PCS; principal; 2023-07-20 12:05)
DX: I21.4 Non-ST elevation (NSTEMI) myocardial infarction (principal); I25.810 Atherosclerosis of coronary artery bypass graft(s) without angina pectoris; I25.2 Old myocardial infarction; I25.10 Atherosclerotic heart disease of native coronary artery without angina pectoris; I25.84 Coronary atherosclerosis due to calcified coronary lesion; Z95.1 Presence of aortocoronary bypass graft; Z87.891 Personal history of nicotine dependence; E89.0 Postprocedural hypothyroidism; E78.5 Hyperlipidemia, unspecified; I10 Essential (primary) hypertension; I08.1 Rheumatic disorders of both mitral and tricuspid valves; I45.10 Unspecified right bundle-branch block; E11.9 Type 2 diabetes mellitus without complications; I65.23 Occlusion and stenosis of bilateral carotid arteries; I27.20 Pulmonary hypertension, unspecified; I69.320 Aphasia following cerebral infarction; R29.810 Facial weakness; I69.328 Other speech and language deficits following cerebral infarction; Q21.9 Congenital malformation of cardiac septum, unspecified; T44.7X5A Adverse effect of beta-adrenoreceptor antagonists, initial encounter; Z79.02 Long term (current) use of antithrombotics/antiplatelets; Z79.82 Long term (current) use of aspirin; Z79.84 Long term (current) use of oral hypoglycemic drugs; Z79.890 Hormone replacement therapy; Z79.899 Other long term (current) drug therapy; Z82.0 Family history of epilepsy and other diseases of the nervous system; Z82.49 Family history of ischemic heart disease and other diseases of the circulatory system; Z60.2 Problems related to living alone; Z28.310 Unvaccinated for COVID-19; Z28.21 Immunization not carried out because of patient refusal; Z88.2 Allergy status to sulfonamides
CPT/HCPCS: 36415; 70450; 71046; 80048; 80053; 80061; 83036; 83735; 83880; 84484; 85025; 85610; 85730; 93306; 93459; 93880; 94760; 95816; 96374; 96375; 99285

== ENCOUNTER → 2023-08-21 | Outpatient (CLI) | payer MEDICARE ==
--- NOTE | 2023-08-21 11:09 | XR ---
EXAMINATION TYPE: XR KUB DATE OF EXAM: 08/21/2023 10:15 AM CLINICAL INDICATION:Male, 83 years old with history of N202 calculus OF KIDNEY; [facility] COMPARISON: None. TECHNIQUE: One radiographic view of the abdomen was obtained. FINDINGS: Bilateral calcifications project over the expected location and kidneys measuring up to 15 mm on the right and 10 mm on the left. Cholecystectomy clips. Scoliosis changes of the spine. Degeneration changes of the hips with osteophy te formation and joint space narrowing. Nonspecific bowel gas pattern. This course of the arterial vasculature. Sternotomy wires are present. IMPRESSION: Bilateral calcifications project over the kidneys.
== END | disposition home or self-care (01) ==
LOC: RADXRMAIN 10:00
PROVIDERS: ATTEND Urology
DX: N20.2 Calculus of kidney with calculus of ureter (principal); N28.89 Other specified disorders of kidney and ureter
CPT/HCPCS: 74018

== ENCOUNTER 2023-08-29 23:48 | Emergency (ER) | payer MEDICARE ==
[2023-08-30 00:33] VITALS: RESP 18; TEMP 97.9
[2023-08-30 01:40] LABS: Basophils % (A) 0 %; Eosinophils # (A) 0.1 k/uL (0-0.7); Eosinophils % (A) 2 %; HCT 39.7 % (39.0-53.0); HGB 13.3 gm/dL (13.0-17.5); Lymphocytes # (A) 1.8 k/uL (1.0-4.8); Lymphocytes % (A) 25 %; MCH 30.4 pg (25.0-35.0); MCHC 33.4 g/dL (31.0-37.0); MCV 90.9 fL (80.0-100.0); Mean Platelet Volume 7.4; Monocytes # (A) 0.6 k/uL (0-1.0); Monocytes % (A) 8 %; Neutrophils # (A) 4.4 k/uL (1.3-7.7); Neutrophils % (A) 62 %; Platelet Count 246 k/uL (150-450); RBC 4.37 m/uL (4.30-5.90)
[2023-08-30 02:28] LABS: ALT 44 U/L (4-49); AST 40 U/L (17-59); African American GFR (CKD) 84 (>60 ml/min/1.73 sqM); Albumin 4.7 g/dL (3.5-5.0); Alkaline Phosphatase 72 U/L (38-126); Anion Gap 14 mmol/L; Blood Urea Nitrogen 20 mg/dL (9-20); Calcium 9.9 mg/dL (8.4-10.2); Carbon Dioxide 24 mmol/L (22-30); Chloride 103 mmol/L (98-107); Glucose 81 mg/dL (74-99); Non-African American GFR(CKD) 73 (>60 ml/min/1.73 sqM); Potassium 4.3 mmol/L (3.5-5.1); Sodium 141 mmol/L (137-145); Total Bilirubin 0.7 mg/dL (0.2-1.3); Total Protein 7.8 g/dL (6.3-8.2)
--- NOTE | 2023-08-30 02:37 | ED ---
General Adult HPI - General Chief complaint: Dizziness Stated complaint: High BP, 212/103 Time Seen by Provider: 08/30/23 00:41 Source: patient, family, RN notes reviewed, old records reviewed Mode of arrival: wheelchair Limitations: no limitations - History of Present Illness Initial comments: Patient is an 83-year-old male with past medical history remarkable for hypertension, prior stroke with residual mild dysarthria, diabetes, prior [place] earlier this year requiring stenting who presents emergency Department complaining of elevated blood pressures at home as well as an episode of lightheadedness. Has been taking his blood pressure medications as prescribed. His only prescribed 12.5 mg twice a day losartan. Was previously on stronger medications, including losartan 25 mg twice a day as well as metoprolol and Imdur, however patient was having hypotensive episodes and upon discharge following his stent placement last month was changed only to losartan 12.5 mg twice a day for blood pressure control. Currently has no acute complaints at t his time. He did take her extra dose of his losartan prior to arrival in the emergency department. Blood pressure is improving, and I when I evaluated the patient was systolics in the 180s. Presents for further evaluation. No falls. Is on aspirin and Plavix. - Related Data Home Medications Medication Instructions Recorded Confirmed Atorvastatin Calcium [Lipitor] 40 mg PO HS 04/05/21 07/20/23 Losartan Potassium [Cozaar] 50 mg PO BID 04/05/21 07/20/23 metFORMIN HCL 1,000 mg PO BID 04/05/21 07/20/23 Acetaminophen Tab [Tylenol] 650 mg PO Q4H PRN 07/20/23 07/20/23 Ascorbic Acid [Vitamin C] 500 mg PO DAILY 07/20/23 07/20/23 Focus Factor 1 tab PO DAILY 07/20/23 07/20/23 Levothyroxine Sodium [Synthroid] 125 mcg PO DAILY 07/20/23 07/20/23 Tamsulosin HCl [Flomax] 0.4 mg PO DAILY 07/20/23 07/20/23 Turmeric Root Extract [Turmeric] 500 mg PO DAILY 07/20/23 07/20/23 Previous Rx's Medication Instructions Recorded Clopidogrel [Plavix] 75 mg PO DAILY #30 tab 04/07/21 Aspirin 81 mg PO DAILY #30 tab 07/23/23 Isosorbide Mononitrate ER [Imdur] 30 mg PO DAILY #30 tab 07/23/23 Loratadine [Claritin] 5 mg PO DAILY 30 Days #15 tab 07/23/23 Nitroglycerin Sl Tabs [Nitrostat] 0.4 mg SUBLINGUAL Q5M PRN #20 tab 07/23/23 Ticagrelor [Brilinta] 90 mg PO BID #60 tab 07/23/23 Metoprolol Tartrate [Lopressor] 12.5 mg PO BID #60 tab 07/24/23 Allergies Allergy/AdvReac Type Severity Reaction Status Date / Time Sulfa (Sulfonamide Allergy Rash/Hives Verified 08/30/23 00:05 Antibiotics) Review of Systems ROS Statement: Those systems with pertinent positive or pertinent negative responses have been documented in the HPI. Review of Systems: CONST: Denies fever EYES: Denies blurry vision ENT: Denies nasal congestion C/V: Denies Chest pain RESP: Denies shortness of breath GI: Denies abdominal pain : Denies dysuria SKIN: Denies rash. MSK: Denies joint pain. NEURO: Denies headache ROS Other: All systems not noted in ROS Statement are negative. Past Medical History Past Medical History: CVA/TIA, Diabetes Mellitus, Myocardial Infarction ([place]) Additional Past Medical History / Comment(s): [place] in August 2020, [place] 20 years ago, type 2 DM Last Myocardial Infarction Date:: 20 years ago History of Any Multi-Drug Resistant Organisms: None Reported Past Surgical History: Cholecystectomy, Coronary Bypass/CABG, Heart Catheterization With Stent, Tonsillectomy Additional Past Surgical History / Comment(s): thyroidectomy, Past Anesthesia/Blood Transfusion Reactions: No Reported Reaction Past Psychological History: No Psychological Hx Reported Smoking Status: Former smoker Past Alcohol Use History: None Reported Past Drug Use History: None Reported - Past Family History Sister(s) Family Medical History: Dementia Father Additional Family Medical History / Comment(s): parkinsons General Exam - General Exam Comments Initial Comments: General: Appears in no acute distress. HEAD: Normal with no signs of head trauma. EYES: PERRLA, EOMI, conjunctiva normal, no discharge. ENT: Hearing grossly intact, normal oropharynx. RESPIRATORY: Clear breath sounds bilaterally. No wheezes, rales, or rhonchi. C/V: Regular rate and rhythm. S1 and S2 auscultated, no edema, peripheral pulses 2+ and intact throughout ABD: Abd is soft, nontender, nondistended EXT: Normal range of motion, no obvious deformity SKIN: No rashes or lesions observed on exposed skin. NEURO: Alert and oriented x 4. Cranial nerves II-XII intact. No acute focal sensory or strength deficits. NIH of 0 for new deficits. Limitations: no limitations Course Vital Signs 08/30/23 08/30/23 08/30/23 00:03 01:30 02:00 Temperature 97.9 F Pulse Rate 54 L 54 L 52 L Respiratory 18 18 18 Rate Blood Pressure 198/86 167/81 155/88 O2 Sat by Pulse 98 95 96 Oximetry 08/30/23 02:30 Temperature Pulse Rate 53 L Respiratory 18 Rate Blood Pressure 144/88 O2 Sat by Pulse 96 Oximetry Medical Decision Making - Medical Decision Making Was pt. sent in by a medical professional or institution (, PA, BORDER [employer], urgent care, hospital, or shelter...) When possible be specific @ -No Did you speak to anyone other than the patient for history (EMS, parent, family, police, friend...)? What history was obtained from this source @ -No Did you review nursing and triage notes (agree or disagree)? Why? @ -I reviewed and agree with nursing and triage notes Were old charts reviewed (outside hosp., previous admission, EMS record, old EKG, old radiological studies, urgent care reports/EKG's, shelter records)? Report findings @ -Old charts were reviewed Differential Diagnosis (chest pain, altered mental status, abdominal pain women, abdominal pain men, vaginal bleeding, weakness, fever, dyspnea, syncope, headache, dizziness, GI bleed, back pain, seizure, CVA, palpatations, mental health, musculoskeletal)? @ -Asymptomatic hypertension, dehydration, electrolyte abnormality, this list is not all inclusive. EKG interpreted by me (3pts min.). @ -As above X-rays interpreted by me (1pt min.). @ -Chest x-ray reveals no obvious acute cardiopulmonary process. CT interpreted by me (1pt min.). @ -None done U/S interpreted by me (1pt. min.). @ -None done What testing was considered but not performed or refused? (CT, X-rays, U/S, labs)? Why? @ -None What meds were considered but not given or refused? Why? @ -Considered antihypertensive medications however patient recently took an extra dose of his blood pressure medication. We will continue to monitor at this time. Did you discuss the management of the patient with other professionals (professionals i.e. , PA, [employer], lab, RT, psych nurse, social sciences department chair, rewind operator, teacher, detention officer, case assembler)? Give summary @ -No Was smoking cessation discussed for >3mins.? @ -No Was critical care preformed (if so, how long)? @ -No Were there social determinants of health that impacted care today? How? (Homelessness, low income, unemployed, alcoholism, drug addiction, transportation, low edu. Level, literacy, decrease access to med. care, long term, rehab)? @ -No Was there de-escalation of care discussed even if they declined (Discuss DNR or withdrawal of care, Hospice)? DNR status @ -No What co-morbidities impacted this encounter? (DM, HTN, Smoking, COPD, CAD, Cancer, CVA, ARF, Chemo, Hep., AIDS, mental health diagnosis, sleep apnea, morbid obesity)? @ -None Was patient admitted / discharged? Hospital course, mention meds given and route, prescriptions, significant lab abnormalities, going to OR and other pertinent info. @ -Based on the patient's presentation and physical exam, presents with what appears to be asymptomatic hypertension. Did have blood pressure medications adjusted last month including ductions and dosing of his blood pressure meds. He has no symptoms at this time. I did discuss with the patient as well as family that I would like to observe him in the department, obtain basic labs, screening EKG, chest x-ray and monitor his pressure. He was in agreement this plan. He originally was on 25 mg losartan BID. Currently and 12.5 mg twice a day. Discussed that he may need to increase his dose back to 25 mg twice a day. EKG showed no acute findings. Chronic changes seen on prior EKGs. Labs are all within acceptable limits. Blood pressure improved to 144/88 after multiple hours of observation. I discussed with the patient as well as family. I believe is safe for him to be discharged home. Recommended he continue his 12.5 mg twice a day dosing and losartan however he can take 1 extra dose per day as needed as he did last night. Recommended keeping a blood pressure log. Recommended follow-up with his PCP in the next 1-2 days. He does have a discussion with him regarding possible adjustments in his blood pressure medication doses. He was in agreement this plan. I instructed the patient to follow up with their PCP in the next 1-3 days. I explained that the patient should return to the emergency department if they experience any worsening symptoms. Strict return precautions were discussed with the patient. The patient expressed understanding of these instructions. I answered all questions that the patient had. The patient was discharged home in good condition with their prescriptions and follow up information. Undiagnosed new problem with uncertain prognosis? @ -No Drug Therapy requiring intensive monitoring for toxicity (Heparin, Nitro, Insulin, Cardizem)? @ -No Were any procedures done? @ -No Diagnosis/symptom? @ -Asymptomatic hypertension Acute, or Chronic, or Acute on Chronic? @ -Acute Uncomplicated (without systemic symptoms) or Complicated (systemic symptoms)? @ -Uncomplicated Side effects of treatment? @ -No Exacerbation, Progression, or Severe Exacerbation? @ -No Poses a threat to life or bodily function? How? (Chest pain, [place], [place], pneumonia, PE, COPD, DKA, ARF, appy, cholecystitis, CVA, Diverticulitis, Homicidal, Suicidal, threat to staff... and all critical care pts) @ -No - Lab Data Result diagrams: 08/30/23 01:25 08/30/23 01:25 Lab Results 08/30/23 08/30/23 Range/Units 01:25 01:25 WBC 7.0 (3.8-10.6) k/uL RBC 4.37 (4.30-5.90) m/uL Hgb 13.3 (13.0-17.5) gm/dL Hct 39.7 (39.0-53.0) % MCV 90.9 (80.0-100.0) fL MCH 30.4 (25.0-35.0) pg MCHC 33.4 (31.0-37.0) g/dL RDW 14.0 (11.5-15.5) % Plt Count 246 (150-450) k/uL MPV 7.4 Neutrophils % 62 % Lymphocytes % 25 % Monocytes % 8 % Eosinophils % 2 % Basophils % 0 % Neutrophils # 4.4 (1.3-7.7) k/uL Lymphocytes # 1.8 (1.0-4.8) k/uL Monocytes # 0.6 (0-1.0) k/uL Eosinophils # 0.1 (0-0.7) k/uL Basophils # 0.0 (0-0.2) k/uL Sodium 141 (137-145) mmol/L Potassium 4.3 (3.5-5.1) mmol/L Chloride 103 (98-107) mmol/L Carbon Dioxide 24 (22-30) mmol/L Anion Gap 14 mmol/L BUN 20 (9-20) mg/dL Creatinine 0.97 (0.66-1.25) mg/dL Est GFR (CKD-EPI)AfAm 84 (>60 ml/min/1.73 sqM) Est GFR (CKD-EPI)NonAf 73 (>60 ml/min/1.73 sqM) Glucose 81 (74-99) mg/dL Calcium 9.9 (8.4-10.2) mg/dL Total Bilirubin 0.7 (0.2-1.3) mg/dL AST 40 (17-59) U/L ALT 44 (4-49) U/L Alkaline Phosphatase 72 (38-126) U/L Total Protein 7.8 (6.3-8.2) g/dL Albumin 4.7 (3.5-5.0) g/dL - EKG Data -: EKG Interpreted by Me EKG Comments: 12-lead Electrocardiogram Interpretation Note EKG was reviewed and interpreted by myself. 12-lead ECG performed at 0105 is interpreted by me as revealing sinus bradycardia with right bundle branch block at a rate of 49 beats per minute. [place] is normal. [place] interval is 135 ms, QRS durations 133 ms, QTc is 458 ms.. There were no acute ST or T wave abnormalities to suggest myocardial ischemia or injury. Chronic T-wave findings including T-wave inversions in the lateral precordial leads as well as II and aVF. These are seen and prior EKGs dating back to 2020. R wave progression across the precordium was satisfactory. By my interpretation this EKG is non- diagnostic for acute ischemia. Disposition Clinical Impression: Asymptomatic hypertension Disposition: HOME SELF-CARE Condition: Good Instructions (If sedation given, give patient instructions): Hypertension (ED) Additional Instructions: Take your losartan as prescribed. 12.5 mg BID. If needed, can take 1 extra dose, 12.5mg losartan, per day until you follow up with your PCP. Keep a blood pressure log of your blood pressures. Return to ER if worsening symptoms. Is patient prescribed a controlled substance at d/c from ED?: No Referrals: Neo Garcia MD [Primary Care Provider] - 1-2 days Time of Disposition: 02:36
[2023-08-30 02:51] VITALS: BP 144/88; PULSE 53
--- NOTE | 2023-08-30 02:57 | XR ---
EXAM: XR Chest, 2 Views CLINICAL HISTORY: XR Reason: htn TECHNIQUE: Frontal and lateral views of the chest. COMPARISON: July 20, 2023 FINDINGS: Lungs: Slightly prominent vascular and interstitial markings. No overt edema or acute focal infiltrate is seen. Pleural space: Unremarkable. No pneumothorax. Heart: Previous CABG. There are multiple sternal wires. The heart is within normal limits in size. Mediastinum: Unremarkable. Normal mediastinal contour. Bones/joints: Mild degenerative changes throughout the spine. No acute fracture. Upper abdomen: There is no pneumoperitoneum under the diaphragm. IMPRESSION: Slightly prominent vascular and interstitial markings. No overt edema or acute focal infiltrate is seen.
== END 2023-08-30 03:00 | disposition home or self-care (01) ==
LOC: EC 23:48
DX: I10 Essential (primary) hypertension (principal); I45.10 Unspecified right bundle-branch block; E11.9 Type 2 diabetes mellitus without complications; I25.2 Old myocardial infarction; Z88.2 Allergy status to sulfonamides; Z79.84 Long term (current) use of oral hypoglycemic drugs; Z79.02 Long term (current) use of antithrombotics/antiplatelets; Z79.82 Long term (current) use of aspirin; Z79.899 Other long term (current) drug therapy; Z87.891 Personal history of nicotine dependence; Z86.73 Personal history of transient ischemic attack (TIA), and cerebral infarction without residual deficits; Z95.1 Presence of aortocoronary bypass graft; Z90.49 Acquired absence of other specified parts of digestive tract
CPT/HCPCS: 36415; 71046; 80053; 85025; 93005; 99285

== ENCOUNTER → 2023-08-29 | Outpatient (CLI) | payer MEDICARE ==
[2023-08-29 16:18] LABS: ALT 46 U/L (10-49); AST 35 U/L (14-35); Albumin 4.4 g/dL (3.8-4.9); Albumin/Globulin Ratio 1.83 Ratio (1.60-3.17); Alkaline Phosphatase 84 U/L (41-126); Bilirubin, Conjugated <0.20 mg/dL (0.20-0.40); Bilirubin,Unconjugated >0.40 mg/dL (0.20-1.00); Chol/HDL Ratio 2.49 Ratio; Globulin 2.4 g/dL (1.6-3.3); LDL Cholesterol,Calculated 35.8 mg/dL (0.0-131.0); Total Bilirubin 0.6 mg/dL (0.3-1.2); Total Protein 6.8 g/dL (6.2-8.2); VLDL Calculation 18.68 mg/dL (5.00-40.00)
== END | disposition home or self-care (01) ==
LOC: LABWHC1 08:12
PROVIDERS: ATTEND Internal Medicine
DX: E78.2 Mixed hyperlipidemia (principal)
CPT/HCPCS: 36415; 80061; 80076

== ENCOUNTER → 2023-10-05 | Outpatient (CLI) | payer MEDICARE ==
[2023-10-05 18:38] LABS: Blood Urea Nitrogen 15.6 mg/dL (9.0-27.0); Carbon Dioxide 21.2 mmol/L (21.6-31.8); Chloride 103 mmol/L (96-109); Glucose 155 mg/dL (70-110); Potassium 4.8 mmol/L (3.5-5.5); Sodium 140 mmol/L (135-145)
[2023-10-05 18:39] LABS: ALT 42 U/L (10-49); AST 34 U/L (14-35); Albumin 4.5 g/dL (3.8-4.9); Alkaline Phosphatase 83 U/L (41-126); Globulin 2.5 g/dL (1.6-3.3); Total Bilirubin 0.6 mg/dL (0.3-1.2)
== END | disposition home or self-care (01) ==
LOC: LABWHC1 15:44
PROVIDERS: ATTEND Internal Medicine Geriatric Medicine
DX: I10 Essential (primary) hypertension (principal); I25.10 Atherosclerotic heart disease of native coronary artery without angina pectoris; E87.6 Hypokalemia
CPT/HCPCS: 36415; 80053

== ENCOUNTER 2024-07-04 06:46 | Emergency (ER) | payer MEDICARE ==
[2024-07-04 06:58] VITALS: TEMP 97.8
--- NOTE | 2024-07-04 07:16 | ED ---
General Adult HPI - General Chief complaint: Chest Pain Stated complaint: Chest Pain Time Seen by Provider: 07/04/24 07:02 Source: patient, RN notes reviewed, old records reviewed Mode of arrival: EMS Limitations: no limitations - History of Present Illness Initial comments: 84-year-old male presents for evaluation of chest pain which began at 3:30 AM. Patient presents at 7 AM. Patient states that he has had previous bypass and previous stenting. He is on aspirin and Plavix. His pain began at 3:30 AM while he was sleeping. Pain is intermittent left-sided. No associated vomiting or diaphoresis. Patient states when the pain comes it lasts just a second. Nonradiating. - Related Data Home Medications Medication Instructions Recorded Confirmed Atorvastatin Calcium [Lipitor] 40 mg PO HS 04/05/21 07/20/23 Losartan Potassium [Cozaar] 50 mg PO BID 04/05/21 07/20/23 metFORMIN HCL 1,000 mg PO BID 04/05/21 07/20/23 Acetaminophen Tab [Tylenol] 650 mg PO Q4H PRN 07/20/23 07/20/23 Ascorbic Acid [Vitamin C] 500 mg PO DAILY 07/20/23 07/20/23 Focus Factor 1 tab PO DAILY 07/20/23 07/20/23 Levothyroxine Sodium [Synthroid] 125 mcg PO DAILY 07/20/23 07/20/23 Tamsulosin HCl [Flomax] 0.4 mg PO DAILY 07/20/23 07/20/23 Turmeric Root Extract [Turmeric] 500 mg PO DAILY 07/20/23 07/20/23 Previous Rx's Medication Instructions Recorded Clopidogrel [Plavix] 75 mg PO DAILY #30 tab 04/07/21 Aspirin 81 mg PO DAILY #30 tab 07/23/23 Isosorbide Mononitrate ER [Imdur] 30 mg PO DAILY #30 tab 07/23/23 Loratadine [Claritin] 5 mg PO DAILY 30 Days #15 tab 07/23/23 Nitroglycerin Sl Tabs [Nitrostat] 0.4 mg SUBLINGUAL Q5M PRN #20 tab 07/23/23 Ticagrelor [Brilinta] 90 mg PO BID #60 tab 07/23/23 Metoprolol Tartrate [Lopressor] 12.5 mg PO BID #60 tab 07/24/23 Allergies Allergy/AdvReac Type Severity Reaction Status Date / Time Sulfa (Sulfonamide Allergy Rash/Hives Verified 07/04/24 06:58 Antibiotics) Review of Systems ROS Statement: Those systems with pertinent positive or pertinent negative responses have been documented in the HPI. ROS Other: All systems not noted in ROS Statement are negative. Past Medical History Past Medical History: CVA/TIA, Diabetes Mellitus, Myocardial Infarction ([place]) Additional Past Medical History / Comment(s): [place] in August 2020, [place] 20 years ago, type 2 DM Last Myocardial Infarction Date:: 20 years ago History of Any Multi-Drug Resistant Organisms: None Reported Past Surgical History: Cholecystectomy, Coronary Bypass/CABG, Heart Catheterization With Stent, Tonsillectomy Additional Past Surgical History / Comment(s): thyroidectomy, Past Anesthesia/Blood Transfusion Reactions: No Reported Reaction Past Psychological History: No Psychological Hx Reported Smoking Status: Former smoker Past Alcohol Use History: None Reported Past Drug Use History: None Reported - Past Family History Sister(s) Family Medical History: Dementia Father Additional Family Medical History / Comment(s): parkinsons General Exam Limitations: no limitations General appearance: alert, in no apparent distress Head exam: Present: atraumatic, normocephalic Eye exam: Present: normal appearance, PERRL ENT exam: Present: normal exam Respiratory exam: Present: normal lung sounds bilaterally, chest wall tenderness. Absent: respiratory distress, wheezes Cardiovascular Exam: Present: regular rate, normal rhythm GI/Abdominal exam: Absent: distended Extremities exam: Present: normal inspection, normal capillary refill. Absent: pedal edema Neurological exam: Present: alert, oriented X3 Psychiatric exam: Present: normal affect, normal mood Skin exam: Present: warm, dry, intact Course Vital Signs 07/04/24 07/04/24 06:50 07:46 Temperature 97.8 F Pulse Rate 60 48 L Respiratory 17 18 Rate Blood Pressure 156/71 127/67 O2 Sat by Pulse 97 94 L Oximetry Medical Decision Making - Medical Decision Making Was pt. sent in by a medical professional or institution (, PA, ANTI TANK MISSILEMAN, urgent care, hospital, or [facility]...) When possible be specific @ -No Did you speak to anyone other than the patient for history (EMS, parent, family, police, friend...)? What history was obtained from this source @ -Patient's daughter Did you review nursing and triage notes (agree or disagree)? Why? @ -I reviewed and agree with nursing and triage notes Were old charts reviewed (outside hosp., previous admission, EMS record, old EKG, old radiological studies, urgent care reports/EKG's, [facility] records)? Report findings @ -No old charts were reviewed Differential Chest Pain: Stable Angina, Unstable Angina, STEMI, NSTEMI Aortic Dissection, Pneumothorax, Musculoskeletal, Esophageal Spasm GERD, Cholecystitis, Pancreatitis, Zoster, this is not meant to be an all-inclusive list. EKG interpreted by me (3pts min.). @Sinus bradycardia, right bundle branch block, rate of 59, DE interval 186, QRS duration 132, QTc 451, similar compared to prior X-rays interpreted by me (1pt min.). @ -Chest x-ray negative for acute cardiopulmonary disease CT interpreted by me (1pt min.). @ -None done U/S interpreted by me (1pt. min.). @ -None done What testing was considered but not performed or refused? (CT, X-rays, U/S, labs)? Why? @ -None What meds were considered but not given or refused? Why? @ -None Did you discuss the management of the patient with other professionals (professionals i.e. , PA, ANTI TANK MISSILEMAN, lab, RT, psych nurse, aids social worker, toll booth operator, teacher, medical laboratory technical officer, case sealer)? Give summary @ -No Was smoking cessation discussed for >3mins.? @ -No Was critical care preformed (if so, how long)? @ -No Were there social determinants of health that impacted care today? How? (Homelessness, low income, unemployed, alcoholism, drug addiction, transportation, low edu. Level, literacy, decrease access to med. care, alf, rehab)? @ -No Was there de-escalation of care discussed even if they declined (Discuss DNR or withdrawal of care, Hospice)? DNR status @ -No What co-morbidities impacted this encounter? (DM, HTN, Smoking, COPD, CAD, Cancer, CVA, ARF, Chemo, Hep., AIDS, mental health diagnosis, sleep apnea, m orbid obesity)? @ -[History of CAD, bypass and stenting Was patient admitted / discharged? Hospital course, mention meds given and route, prescriptions, significant lab abnormalities, going to OR and other pertinent info. @ -84-year-old male with left lateral chest pain, reproducible on exam, no a ssociated symptoms. No typical features. Pain lasts 1 second at a time and has been intermittent. EKG shows no ST segment elevation, similar compared to prior. Chest x-ray is clear without acute findings. Patient has normal CBC, normal CMP, negative initial troponin. I did perform a 3-hour repeat troponin which was again negative. Patient prefers discharge but is given strict return parameters. Undiagnosed new problem with uncertain prognosis? @ -No Drug Therapy requiring intensive monitoring for toxicity (Heparin, Nitro, Insulin, Cardizem)? @ -No Were any procedures done? @ -No Diagnosis/symptom? @ -[Chest pain Acute, or Chronic, or Acute on Chronic? @Acute Uncomplicated (without systemic symptoms) or Complicated (systemic symptoms)? @ -Default Side effects of treatment? @ -No Exacerbation, Progression, or Severe Exacerbation? @ -No Poses a threat to life or bodily function? How? (Chest pain, [place], [place], pneumonia, PE, COPD, DKA, ARF, appy, cholecystitis, CVA, Diverticulitis, Homicidal, Suicidal, threat to staff... and all critical care pts) @ -Low risk at this time - Lab Data Result diagrams: 07/04/24 07:17 07/04/24 07:17 Lab Results 07/04/24 07/04/24 07/04/24 Range/Units 07:17 07:17 07:17 WBC 8.4 (3.8-10.6) k/uL RBC 4.58 (4.30-5.90) m/uL Hgb 13.8 (13.0-17.5) gm/dL Hct 42.4 (39.0-53.0) % MCV 92.5 (80.0-100.0) fL MCH 30.2 (25.0-35.0) pg MCHC 32.6 (31.0-37.0) g/dL RDW 13.8 (11.5-15.5) % Plt Count 302 (150-450) k/uL MPV 7.1 Neutrophils % 66 % Lymphocytes % 21 % Monocytes % 8 % Eosinophils % 2 % Basophils % 0 % Neutrophils # 5.6 (1.3-7.7) k/uL Lymphocytes # 1.7 (1.0-4.8) k/uL Monocytes # 0.7 (0-1.0) k/uL Eosinophils # 0.2 (0-0.7) k/uL Basophils # 0.0 (0-0.2) k/uL PT 12.6 H (10.0-12.5) sec INR 1.2 H (<1.2) APTT 23.2 (22.0-30.0) sec Sodium 144 (137-145) mmol/L Potassium 4.5 (3.5-5.1) mmol/L Chloride 107 (98-107) mmol/L Carbon Dioxide 23 (22-30) mmol/L Anion Gap 14 mmol/L BUN 16 (9-20) mg/dL Creatinine 1.02 (0.66-1.25) mg/dL Est GFR (CKD-EPI)AfAm 78 (>60 ml/min/1.73 sqM) Est GFR (CKD-EPI)NonAf 67 (>60 ml/min/1.73 sqM) Glucose 96 (74-99) mg/dL Calcium 9.8 (8.4-10.2) mg/dL Magnesium 1.8 (1.6-2.3) mg/dL Total Bilirubin 1.1 (0.2-1.3) mg/dL AST 35 (17-59) U/L ALT 35 (4-49) U/L Alkaline Phosphatase 86 (38-126) U/L Troponin I (0.000-0.034) ng/mL Total Protein 7.6 (6.3-8.2) g/dL Albumin 4.7 (3.5-5.0) g/dL 07/04/24 07/04/24 Range/Units 07:17 09:37 WBC (3.8-10.6) k/uL RBC (4.30-5.90) m/uL Hgb (13.0-17.5) gm/dL Hct (39.0-53.0) % MCV (80.0-100.0) fL MCH (25.0-35.0) pg MCHC (31.0-37.0) g/dL RDW (11.5-15.5) % Plt Count (150-450) k/uL MPV Neutrophils % % Lymphocytes % % Monocytes % % Eosinophils % % Basophils % % Neutrophils # (1.3-7.7) k/uL Lymphocytes # (1.0-4.8) k/uL Monocytes # (0-1.0) k/uL Eosinophils # (0-0.7) k/uL Basophils # (0-0.2) k/uL PT (10.0-12.5) sec INR (<1.2) APTT (22.0-30.0) sec Sodium (137-145) mmol/L Potassium (3.5-5.1) mmol/L Chloride (98-107) mmol/L Carbon Dioxide (22-30) mmol/L Anion Gap mmol/L BUN (9-20) mg/dL Creatinine (0.66-1.25) mg/dL Est GFR (CKD-EPI)AfAm (>60 ml/min/1.73 sqM) Est GFR (CKD-EPI)NonAf (>60 ml/min/1.73 sqM) Glucose (74-99) mg/dL Calcium (8.4-10.2) mg/dL Magnesium (1.6-2.3) mg/dL Total Bilirubin (0.2-1.3) mg/dL AST (17-59) U/L ALT (4-49) U/L Alkaline Phosphatase (38-126) U/L Troponin I <0.012 <0.012 (0.000-0.034) ng/mL Total Protein (6.3-8.2) g/dL Albumin (3.5-5.0) g/dL Disposition Clinical Impression: Chest pain Disposition: HOME SELF-CARE Condition: Fair Instructions (If sedation given, give patient instructions): Chest Pain (ED) Is patient prescribed a controlled substance at d/c from ED?: No Referrals: Neo Garcia MD [Primary Care Provider] - 1-2 days Time of Disposition: 10:08
[2024-07-04 07:24] LABS: Basophils % (A) 0 %; Eosinophils # (A) 0.2 k/uL (0-0.7); Eosinophils % (A) 2 %; HCT 42.4 % (39.0-53.0); HGB 13.8 gm/dL (13.0-17.5); Lymphocytes # (A) 1.7 k/uL (1.0-4.8); Lymphocytes % (A) 21 %; MCH 30.2 pg (25.0-35.0); MCHC 32.6 g/dL (31.0-37.0); MCV 92.5 fL (80.0-100.0); Mean Platelet Volume 7.1; Monocytes # (A) 0.7 k/uL (0-1.0); Monocytes % (A) 8 %; Neutrophils # (A) 5.6 k/uL (1.3-7.7); Neutrophils % (A) 66 %; Platelet Count 302 k/uL (150-450); RBC 4.58 m/uL (4.30-5.90); RDW 13.8 % (11.5-15.5); WBC 8.4 k/uL (3.8-10.6)
[2024-07-04 07:31] LABS: INR 1.2 (<1.2); Partial Thromboplastin Time 23.2 sec (22.0-30.0); Prothrombin Time 12.6 sec (10.0-12.5)
[2024-07-04 07:39] LABS: ALT 35 U/L (4-49); AST 35 U/L (17-59); African American GFR (CKD) 78 (>60 ml/min/1.73 sqM); Albumin 4.7 g/dL (3.5-5.0); Alkaline Phosphatase 86 U/L (38-126); Anion Gap 14 mmol/L; Blood Urea Nitrogen 16 mg/dL (9-20); Calcium 9.8 mg/dL (8.4-10.2); Carbon Dioxide 23 mmol/L (22-30); Chloride 107 mmol/L (98-107); Glucose 96 mg/dL (74-99); Magnesium 1.8 mg/dL (1.6-2.3); Non-African American GFR(CKD) 67 (>60 ml/min/1.73 sqM); Potassium 4.5 mmol/L (3.5-5.1); Sodium 144 mmol/L (137-145); Total Bilirubin 1.1 mg/dL (0.2-1.3); Total Protein 7.6 g/dL (6.3-8.2)
[2024-07-04 07:47] VITALS: RESP 18
--- NOTE | 2024-07-04 07:54 | XR ---
EXAMINATION TYPE: XR chest 2V DATE OF EXAM: 07/04/2024 COMPARISON: 08/30/2023 HISTORY: Shortness of breath TECHNIQUE: Frontal and lateral views of the chest are obtained. FINDINGS: Scattered senescent parenchymal changes noted. Hyperinflation compatible with COPD. No evidence for infiltrate. No evidence for atelectasis. Heart size is stable. Mediastinal structures are stable and grossly unremarkable. No evidence for hilar prominence. Degenerative changes dorsal spine. IMPRESSION: 1. No evidence for acute pulmonary disease. [facility], , 07/04/2024 7:52 AM
[2024-07-04 10:27] VITALS: BP 120/62; PULSE 56
== END 2024-07-04 10:27 | disposition home or self-care (01) ==
LOC: EC 06:46
CPT/HCPCS: 36415; 71046; 80053; 83735; 84484; 85025; 85610; 85730; 93005; 99285